=== PATIENT | female | born 1955 | race Caucasian/White ===

== ENCOUNTER 2018-05-21 08:12 | Day surgery (SDC) | payer OTHER ==
--- OUTSIDE RECORDS SUMMARY | 2018-05-21 08:17 | XMS REPORT ---
:1955 Author Organization eClinicalWorks Care Team Providers Name Role Phone Suzette Soto Provider Role Unavailable Allergies No Known Allergies Problems Problem Type Condition Code Onset Dates Condition Status Problem Paresthesia of both legs R20.2 Active Problem Numbness in both hands R20.0 Active Problem Hypertension, unspecified type I10 Active Problem Hypercholesterolemia E78.00 Active Problem Other chronic pain G89.29 Active Problem Memory loss R41.3 Active Problem Pain in left shoulder M25.512 Active Problem Hypothyroidism, unspecified type E03.9 Active Problem Peripheral edema R60.9 Active Problem Pain in right shoulder M25.511 Active Problem Low back pain M54.5 Active Problem Neck pain M54.2 Active Problem Hyperglycemia R73.9 Active Medications No Known Medications Results No Known Results Summary Purpose eClinicalWorks Submission
--- OUTSIDE RECORDS SUMMARY | 2018-05-21 08:17 | XMS REPORT ---
:1955 Author Organization eClinicalWorks Care Team Providers Name Role Phone Suzette Soto Provider Role Unavailable Allergies, Adverse Reactions, Alerts Substance Reaction Event Type N.K.D.A. Info Not Available Non Drug Allergy Problems Problem Type Condition Code Onset Dates Condition Status Problem Paresthesia of both legs R20.2 Active Problem Numbness in both hands R20.0 Active Problem Hypertension, unspecified type I10 Active Problem Hypercholesterolemia E78.00 Active Assessment Neck pain M54.2 Active Problem Other chronic pain G89.29 Active Problem Memory loss R41.3 Active Problem Pain in left shoulder M25.512 Active Problem Hypothyroidism, unspecified type E03.9 Active Problem Peripheral edema R60.9 Active Problem Pain in right shoulder M25.511 Active Assessment Numbness in both hands R20.0 Active Assessment Hypothyroidism, unspecified type E03.9 Active Assessment Pain in left shoulder M25.512 Active Assessment Pain in right shoulder M25.511 Active Assessment Hypertension, unspecified type I10 Active Problem Low back pain M54.5 Active Assessment Hypercholesterolemia E78.00 Active Problem Neck pain M54.2 Active Assessment Hyperglycemia R73.9 Active Problem Hyperglycemia R73.9 Active Medications Medication Code Code Instructions Start End Status Dosage System Date Date Triamcinolone & NDC 0 0.1 % Active 1 application Emollient Externally Twice a day Zestoretic ND 81013843919 20-12.5 MG Active 1 tablet Orally Once a day Levothyroxine ND 71100447827 50 MCG Orally Active 1 tablet on Sodium Once a day an empty stomach in the morning Amlodipine ND 88549858515 10 MG Orally Active 1 tablet Besylate Once a day Multivitamin & NDC 51959498676 - Orally Active not defined Mineral Pravastatin NDC 65991467610 10 MG Orally Active 1 tablet in Sodium Once a day evening Results No Known Results Summary Purpose eClinicalWorks Submission
--- OUTSIDE RECORDS SUMMARY | 2018-05-21 08:17 | XMS REPORT ---
[...] Pain in right shoulder M25.511 Active Assessment Screening mammogram, encounter for Z12.31 Active Problem Low back pain M54.5 Active Problem Neck pain M54.2 Active Problem Hyperglycemia R73.9 Active Medications No Known Medications Results No Known Results Summary Purpose eClinicalWorks Submission
[2018-05-21] MEDS ORDERED: NA CHLORIDE 0.9% 1,000 ML ONE (08:41)
[2018-05-21 09:00] LABS: MPV 9.9 fL (7.6-11.3)
[2018-05-21 09:02] LABS: Protime INR 1.03
[2018-05-21] MEDS ORDERED: NALOXONE 0.4 MG/ML VIAL ONE (09:36)
[2018-05-21] MEDS ORDERED: FENTANYL CITR 100 MCG/2 ML ONE (09:36)
[2018-05-21] MEDS ORDERED: FLUMAZENIL 0.1 MG/ML (5 mL VIAL) IV ONE (09:36)
[2018-05-21] MEDS ORDERED: DIPHENHYDRAMINE 50 MG/ML VIAL ONE (09:36)
[2018-05-21] MEDS ORDERED: MIDAZOLAM HCL 2 MG/2 ML INJ ONE (09:36)
[2018-05-21 09:49] LABS: Platelet Estimate ADEQ
--- NOTE | 2018-05-21 12:50 | RAD REPORT ---
EXAM DESCRIPTION: US - Liver Biopsy Proceduree - 05/21/2018 10:55 am CLINICAL HISTORY: Abnormal liver function. COMPARISON: None. TECHNIQUE: The patient presents for ultrasound-guided liver biopsy. The procedure, risks and alterna tives were discussed with the patient in detail. After answering all questions, both oral and written consent were obtained. The patient had no contraindicated allergy or medication history. PT/ PTT/ IN R values within normal limits. Platelet count was normal. Preliminary imaging identified an adequate right lateral upper abdominal access site. IV access and physiologic monitors were in place. The patient was pre-medicated with Versed at 2.0 mi lligrams IV and fentanyl 100 micrograms IV. The right lateral abdomen was prepped and draped in the usual sterile fashion. Under ultrasound js nce, skin and deeper tissues were anesthetized with 1% lidocaine. Under direct sonographic visualizat ion, an 18 gauge introducer needle was advanced. The tip was advanced through the liver capsule into the liver parenchyma under direct sonographic visualization. Through the introducer needle, an 18 gau ge needle was advanced into the liver. A 2 cm core biopsy was obtained. A second 2 cm core biopsy was obtained through the introducer needle. Specimens appeared to be adequate. Introducer needle was rem marcial. Direct pressure was applied to the puncture site at the skin down to the liver capsule. Post bi opsy imaging showed no subcapsular or pericapsular hematoma. A sterile bandage was placed to the punc ture site. The patient was placed in a right side down position to apply greater pressure to the biop sy site. Conscious sedation time was 40 minutes. Vital signs were stable throughout the procedure. Patient was monitored throughout the examination by nursing personnel. Patient was transferred to the same day s urgical area for continued monitoring. IMPRESSION: Ultrasound-guided liver biopsy was performed as detailed. All biopsy material was given to pathology for histologic assessment.
== END 2018-05-21 14:07 | disposition home or self-care (01) ==
LOC: DS 08:12
PROVIDERS: ATTEND Internal Medicine Gastroenterology
PROC: 0FB03ZX Excision of Liver, Percutaneous Approach, Diagnostic (ICD-10-PCS; principal; 2018-05-21)
DX: K76.0 Fatty (change of) liver, not elsewhere classified (principal); R10.11 Right upper quadrant pain; R93.5 Abnormal findings on diagnostic imaging of other abdominal regions, including retroperitoneum
CPT/HCPCS: 36415; 47000; 85049; 85610; 85730; 88305; 88307; 88312; 88313; J2250; J2310; J3010; J7030

== ENCOUNTER 2018-06-07 08:10 | Day surgery (SDC) | payer OTHER ==
[2018-06-05 09:55] LABS: Absolute Lymphocytes (CBC) 1.4 K/uL (0.7-4.9); Absolute Monocytes 0.5 K/uL (0.1-1.3); Absolute Neutrophil 3.9 K/uL (1.8-8.0); Basophils % 0.6 % (0-1.3); Eosinophils % 1.7 % (0-4.4); Lymphocytes % 22.9 % (15.3-44.8); MCH 32.1 pg (27.0-35.0); MCV 90.5 fL (80-100); MPV 10.3 fL (7.6-11.3); Monocytes % 9.2 % (3.3-12.3); RBC Red Blood Cell Count 4.53 M/uL (3.86-4.86)
[2018-06-05 10:14] LABS: Potassium 4.1 mmol/L (3.5-5.1)
--- NOTE | 2018-06-05 10:14 | RAD REPORT ---
EXAM DESCRIPTION: RAD - Chest Pa And Lat (2 Views) - 06/05/2018 9:38 am CLINICAL HISTORY: Hypertension Chest pain. COMPARISON: CHEST SINGLE VIEW dated 01/10/2014 FINDINGS: The lungs are clear. The heart is upper limit normal in size. No displaced fractures. IMPRESSION: No acute or concerning finding suspected.
--- NOTE | 2018-06-05 12:59 | EKG ---
Test Date: 2018-06-05 Test Time: 09:33:02 Wood Pole Treater: JASPAL MEASUREMENT RESULTS: Intervals: Rate: 58 TN: 176 QRSD: 80 QT: 382 QTc: 374 [place]: P: 54 TN: 176 QRS: 13 T: 45 INTERPRETIVE STATEMENTS: Sinus bradycardia Otherwise normal ECG Compared to ECG 01/10/2014 01:16:43 Sinus rhythm no longer present Electronically Signed On 06-05-18 12:57:54 CDT by Flaco Bassett
--- OUTSIDE RECORDS SUMMARY | 2018-06-07 08:14 | XMS REPORT ---
:1955 Author Organization eClinicalWorks Care Team Providers Name Role Phone Charles Suzette Provider Role Unavailable Allergies No Known Allergies [...]
--- OUTSIDE RECORDS SUMMARY | 2018-06-07 08:14 | XMS REPORT ---
[...] Emollient Externally Twice a day Zestoretic ND 31566865540 20-12.5 MG Active 1 tablet Orally Once a day Levothyroxine ND 03449968850 50 MCG Orally Active 1 tablet on Sodium Once a day an empty stomach in the morning Amlodipine ND 82943406266 10 MG Orally Active 1 tablet Besylate Once a day Multivitamin & NDC 51673329438 - Orally Active not defined Mineral Pravastatin NDC 45270664710 10 MG Orally Active 1 tablet in Sodium Once a day evening Results No Known Results Summary Purpose eClinicalWorks Submission
--- OUTSIDE RECORDS SUMMARY | 2018-06-07 08:14 | XMS REPORT ---
:1955 Author Organization eClinicalWorks Care Team Providers Name Role Phone Charles Suzette Provider Role Unavailable Allergies, Adverse Reactions, Alerts [...] Pain in right shoulder M25.511 Active Assessment Hypothyroidism, unspecified type E03.9 Active Assessment Hypercholesterolemia E78.00 Active Assessment Hyperglycemia R73.9 Active Problem Low back pain M54.5 Active Assessment Influenza vaccination administered Z23 Active at current visit Problem Neck pain M54.2 Active Assessment Hypertension, unspecified type I10 Active Problem Hyperglycemia R73.9 Active Medications Medication Code Code Instructions Start End Status Dosage System Date Date Multivitamin & [facility] 70117783933 - Orally Active not Mineral defined Zestoretic [facility] 10789005190 20-12.5 MG Active 1 tablet Orally Once a day Pravastatin ND 46265021033 10 MG Orally Active 1 tablet Sodium Once a day in evening Amlodipine [facility] 94808493824 10 MG Orally Active 1 tablet Besylate Once a day Levothyroxine ND 20921025527 50 MCG Orally Active 1 tablet Sodium Once a day on an empty stomach in the morning Results No Known Results Immunizations Vaccine Administration Date Flucelvax Jun 04, 2018 Summary Purpose eClinicalWorks Submission
[2018-06-07] MEDS ORDERED: Ringers Lactate 1,000 ML IV ONE (08:58)
[2018-06-07] MEDS ORDERED: CEFOXITIN/SWI 1gm 1 GM/10 ML SYR ONE (08:59)
[2018-06-07] MEDS ORDERED: PROPOFOL 200 MG/20 ML VIAL IV ONE (09:46)
[2018-06-07] MEDS ORDERED: FENTANYL CITR 100 MCG/2 ML ONE (09:46)
[2018-06-07] MEDS ORDERED: MIDAZOLAM HCL 2 MG/2 ML INJ ONE (09:46)
[2018-06-07] MEDS ORDERED: LIDOCAINE 2% MPF 5 ML VIAL ONE (09:46)
[2018-06-07] MEDS ORDERED: ROCURONIUM 50 MG/5 ML VIAL IV ONE (09:49)
[2018-06-07] MEDS ORDERED: ONDANSETRON 4 MG/2 ML VIAL ONE ×2 (09:49→12:49)
[2018-06-07] MEDS ORDERED: DEXAMETHASONE 10 MG/ML VIAL ONE (11:06)
[2018-06-07] MEDS ORDERED: GLYCOPYRROLATE 0.2 MG/ML SYR ONE (11:20)
[2018-06-07] MEDS ORDERED: KETOROLAC 30 MG/ML INJ ONE (11:21)
[2018-06-07] MEDS ORDERED: NEOSTIGMINE 1 MG/ML -5 ML SYRINGE ONE (11:22)
[2018-06-07] MEDS: MEPERIDINE HCL 50 MG/ML AMP ONE ×7 (11:36→12:21)
--- NOTE | 2018-06-07 11:52 | OP ---
Date of Procedure: 06/07/2018 Surgeon: Delfino Cardoza MD Mortgage Loan Processor: RADAMES Murphy. Preoperative Diagnoses: Chronic cholecystitis. Biliary dyskinesia. Postoperative Diagnoses: Chronic cholecystitis. Biliary dyskinesia. Procedure: Laparoscopic cholecystectomy. Estimated Blood Loss: Minimal. Specimen: Gallbladder. Finding: As above. Anesthesia: General. Complications: None. Disposition: The patient tolerated the procedure in stable condition and taken to Recovery in good g eneral condition. Procedure In Detail: The patient was brought to the OR and placed in the supine position. General a nesthesia was begun. The patient was prepped and draped in the usual sterile fashion. Marcaine 0.5% was infiltrated locally. A 15-blade was used to make a 1 cm supraumbilical midline incision. Subcu taneous tissue divided. The fascia was identified and divided. A #1 Vicryl stay suture was placed. Peritoneal cavity was entered with sharp and blunt dissection. A 12-mm trocar placed into the perit islas cavity under direct vision. Pneumoperitoneum was established. Then three 5-mm trocars placed, 1 in the epigastrium just to the right of midline and 2 in the right subcostal region. Laparoscopy revealed chronic inflammation of the gallbladder with some minimal adhesions, which were taken down w ith sharp and blunt dissection. Fundus retracted superiorly. Infundibulum was identified and retrac twila inferolaterally. Cystic duct and cystic artery were clearly identified with blunt dissection. C lips placed. Both structures were divided. Cautery was used to remove the gallbladder from the live r bed. Bleeding on the liver bed was controlled with cautery. Gallbladder retrieved through the umb ilicus via an EndoCatch bag. Right upper quadrant was irrigated. Effluent was clear. No evidence o f bleeding or bile leakage appreciated. Subsequently, all trocars were removed under direct vision. Stay sutures were tied to each other across the fascial defect. Subcutaneous wounds irrigated. Ble eding controlled with cautery. A 3-0 chromic used to approximate subcutaneous tissue and 3-0 chromic also used to close skin. Sterile dressing was applied. The patient was awakened and taken to [facility] in good general condition. /MODL Voice ID: [id number] Report ID: [id number]
--- NOTE | 2018-06-07 11:58 | DS ---
Discharge Note: The patient will go to Day Surgery and home when stable. Disposition: Home. Condition: Stable. Discharge Instructions: Resume home medications and diet. Activity as tolerated. No heavy lifting. Remove outer dressing in 2 days. Shower. Keep wound clean and dry. Keep Steri-Strips on at all t imes. Tylenol No. 3 one tab p.o. q.4 p.r.n. pain. Follow up in my office in a week. Call for appoi ntment. Incentive spirometry as ordered. /MODL Voice ID: [id number] Report ID: [id number]
[2018-06-07] MEDS ORDERED: HYDROCODONE/APAP 7.5/325 MG TAB ONE (12:48)
== END 2018-06-07 13:45 | disposition home or self-care (01) ==
LOC: OR 08:10
PROVIDERS: ATTEND Surgery
PROC: 0FT44ZZ Resection of Gallbladder, Percutaneous Endoscopic Approach (ICD-10-PCS; principal; 2018-06-07 09:45)
DX: K81.1 Chronic cholecystitis (principal); K21.9 Gastro-esophageal reflux disease without esophagitis; I10 Essential (primary) hypertension; E07.9 Disorder of thyroid, unspecified; Z80.0 Family history of malignant neoplasm of digestive organs
CPT/HCPCS: 36415; 71046; 80048; 85025; 88304; 93005; J1100; J2175; J2250; J2405; J2710; J3010

== ENCOUNTER 2019-02-21 19:28 | Emergency (ER) | payer OTHER ==
--- OUTSIDE RECORDS SUMMARY | 2019-02-21 19:31 | XMS REPORT ---
[...] Status Dosage System Date Date Multivitamin & [facility] 61465334567 - Orally Active not Mineral defined Zestoretic [facility] 00382256345 20-12.5 MG Active 1 tablet Orally Once a day Pravastatin ND 64267427031 10 MG Orally Active 1 tablet Sodium Once a day in evening Amlodipine [facility] 89304613017 10 MG Orally Active 1 tablet Besylate Once a day Levothyroxine ND 31531985709 50 MCG Orally Active 1 tablet Sodium Once a day on an empty stomach in the morning Results No Known Results Immunizations Vaccine Administration Date Flucelvax Jun 04, 2018 Summary Purpose eClinicalWorks Submission
--- OUTSIDE RECORDS SUMMARY | 2019-02-21 19:31 | XMS REPORT ---
:1955 [facility] Team Providers Name Role Phone Suzette Soto Provider Role Unavailable Allergies, Adverse Reactions, Alerts Substance Reaction Event Type N.K.D.A. Info Not Available Non Drug Allergy Problems Problem Type Condition Code Onset Dates Condition Status Assessment Hypertension, unspecified type I10 Active Assessment Hypothyroidism, unspecified type E03.9 Active Assessment Hot flashes R23.2 Active Assessment Sweating increase R61 Active Assessment Generalized weakness R53.1 Active Assessment Dizziness R42 Active Assessment Pain of upper abdomen R10.10 Active Assessment Paresthesia R20.2 Active Assessment Myalgia M79.10 Active Problem Hypercholesterolemia E78.00 Active Assessment Arthralgia, unspecified joint M25.50 Active Problem Memory loss R41.3 Active Problem Obesity (BMI 30.0-34.9) E66.9 Active Problem Myalgia M79.10 Active Problem Essential hypertension I10 Active Problem Paresthesia R20.2 Active Problem Generalized weakness R53.1 Active Problem Pain in right shoulder M25.511 Active Problem Pain in left shoulder M25.512 Active Problem Dizziness R42 Active Problem Hypothyroidism, unspecified type E03.9 Active Problem Arthralgia, unspecified joint M25.50 Active Problem Hot flashes R23.2 Active Problem Sweating increase R61 Active Problem Pain of upper abdomen R10.10 Active Problem Numbness in both hands R20.0 Active Problem Neck pain M54.2 Active Problem Paresthesia of both legs R20.2 Active Problem Hypertension, unspecified type I10 Active Problem Peripheral edema R60.9 Active Problem Other chronic pain G89.29 Active Problem Hyperglycemia R73.9 Active Problem Low back pain M54.5 Active Medications Medication Code Code Instructions Start End Status Dosage System Date Date Zestoretic [facility] 47621663113 20-12.5 MG Active 1 tablet Orally Once a day Amlodipine [facility] 44650897279 10 MG Orally Active 1 tablet Besylate Once a day Pravastatin [facility] 72502666115 10 MG Orally Active 1 tablet Sodium Once a day in evening Multivitamin & NDC 93865481555 - Orally Active not Mineral defined Levothyroxine [facility] 58328603195 50 MCG Orally Active 1 tablet Sodium Once a day on an empty stomach in the morning Results No Known Results Summary Purpose eClinicalWorks Submission
--- OUTSIDE RECORDS SUMMARY | 2019-02-21 19:31 | XMS REPORT ---
:1955 Author Organization eClinicalWorks Care Team Providers Name Role Phone Suzette Soto Provider Role Unavailable Allergies No Known Allergies Problems Problem Type Condition Code Onset Dates Condition Status Problem Obesity (BMI 30.0-34.9) E66.9 Active Problem Myalgia M79.10 Active Problem Essential hypertension I10 Active Problem Paresthesia R20.2 Active Problem Pain in right shoulder M25.511 Active Problem Generalized weakness R53.1 Active Problem Pain in left shoulder M25.512 Active Problem Hypothyroidism, unspecified type E03.9 Active Problem Dizziness R42 Active Problem Arthralgia, unspecified joint M25.50 Active [...] G89.29 Active Problem Hyperglycemia R73.9 Active Problem Hypercholesterolemia E78.00 Active Problem Low back pain M54.5 Active Problem Memory loss R41.3 Active Medications No Known Medications Results No Known Results Summary Purpose eClinicalWorks Submission
--- OUTSIDE RECORDS SUMMARY | 2019-02-21 19:31 | XMS REPORT ---
:1955 Author Organization eClinicalWorks Care Team Providers Name Role Phone Netoilene Suzette Provider Role Unavailable Allergies, Adverse Reactions, Alerts Substance Reaction Event Type N.K.D.A. Info Not Available Non Drug Allergy Problems Problem Type Condition Code Onset Dates Condition Status Problem Numbness in both hands R20.0 Active Problem Pain in left shoulder M25.512 Active Problem Hypothyroidism, unspecified type E03.9 Active Problem Obesity (BMI 30.0-34.9) E66.9 Active Assessment Obesity (BMI 30.0-34.9) E66.9 Active Problem Memory loss R41.3 Active Problem Essential hypertension I10 Active Problem Peripheral edema R60.9 Active Problem Pain in right shoulder M25.511 Active Problem Hypercholesterolemia E78.00 Active Problem Other chronic pain G89.29 Active Assessment Hyperglycemia R73.9 Active Assessment Essential hypertension I10 Active Assessment Hypothyroidism, unspecified type E03.9 Active Assessment Hypercholesterolemia E78.00 Active Problem Hyperglycemia R73.9 Active Problem Low back pain M54.5 Active Problem Paresthesia of both legs R20.2 Active Problem Neck pain M54.2 Active Problem Hypertension, unspecified type I10 Active Medications Medication Code Code Instructions Start End Status Dosage System Date Date Zestoretic [facility] 03606288639 20-12.5 MG Active 1 tablet Orally Once a day Pravastatin [facility] 93772283583 10 MG Orally Active 1 tablet Sodium Once a day in evening Amlodipine [facility] 80129131866 10 MG Orally Active 1 tablet Besylate Once a day Levothyroxine [facility] 90067363701 50 MCG Orally Active 1 tablet Sodium Once a day on an empty stomach in the morning Multivitamin & ND 79080180180 - Orally Active not Mineral defined Results No Known Results Summary Purpose eClinicalWorks Submission
[2019-02-21] MEDS ORDERED: KETOROLAC 30 MG/ML INJ ONE (20:10)
[2019-02-21] MEDS ORDERED: ONDANSETRON 4 MG/2 ML VIAL ONE (20:11)
[2019-02-21] MEDS ORDERED: NA CHLORIDE 0.9% 500 ML ONE (20:11)
[2019-02-21 20:34] LABS: Basophils % 0.7 % (0-1.3); Eosinophils % 1.3 % (0-4.4); Hematocrit 40.4 % (36.0-45.0); Lymphocytes % 36.1 % (15.3-44.8); MPV 10.1 fL (7.6-11.3); Monocytes % 8.7 % (3.3-12.3); RBC Red Blood Cell Count 4.37 M/uL (3.86-4.86)
[2019-02-21 20:49] LABS: Albumin 3.8 g/dL (3.4-5.0); Bilirubin Total 0.3 mg/dL (0.2-1.0); Potassium 4.1 mmol/L (3.5-5.1); Protein, Total 7.6 g/dL (6.4-8.2)
--- NOTE | 2019-02-21 20:57 | RAD REPORT ---
EXAM DESCRIPTION: CT - Stone Protocol - 02/21/2019 8:43 pm CLINICAL HISTORY: Flank pain. PAIN COMPARISON: CT ABD PELVIS W CONTRAST dated 12/15/2008 TECHNIQUE: Axial images were obtained without oral or IV contrast. Lack of contrast limits solid org an and vascular assessment. The [id number] spans the entirety of the system partially obscuring uppermost abdomen and lung bases. Coronal reformatted images were obtained and reviewed. All CT scans are performed using dose optimization technique as appropriate and may include automated exposure control or mA/KV adjustment according to patient size. FINDINGS: The lower lung goins are clear. Cholecystectomy clips. Imaged portions of the liver and spleen show no suspicious findings on non-contrast imaging. The panc reas and adrenal glands are normal. No pathologic lymphadenopathy in the abdomen or pelvis. No urinary tract stones or obstructive uropathy. No bowel obstruction, free air, free fluid or abscess. Normal appendix noted. Moderate lumbar degenerative changes are present. IMPRESSION: No urinary tract stones or obstructive uropathy.
--- NOTE | 2019-02-21 21:23 | EDPHYS ---
Physician Documentation [facility] Name: Mi Cleveland Age: 63 yrs Sex: Female : 1955 Arrival Date: 02/21/2019 Time: 19:32 Bed 6 Private MD: Suzette Soto ED Physician Fercho Shi HPI: 02/21 19:50 This 63 yrs old Female presents to ER via Ambulatory with complaints of pooja Possible Kidney Stone. 19:50 The patient complains of pain in the lumbar area, left low back, left mid back, right pooja mid back and right low back. The pain does not radiate. Onset: The symptoms/episode began/occurred 1 day(s) ago. Modifying factors: The symptoms are alleviated by nothing. the symptoms are aggravated by nothing. The patient presents with pain that is acute, with no known mechanism of injury. The symptoms are located in the low back. Onset: The symptoms/episode began/occurred 1 day(s) ago. The pain does not radiate. Associated signs and symptoms: The patient has no apparent associated signs or symptoms. Historical: - Allergies: 19:48 No Known Allergies; bb - Home Meds: 19:48 amlodipine 10 mg tab 1 tab once daily [Active]; levothyroxine 50 mcg tab 1 tab once bb daily [Active]; pravastatin 10 mg oral tab 1 tab once daily [Active]; omeprazole 40 mg Oral cpDR 1 cap once daily [Active]; raloxifene 60 mg oral tab 1 tab once daily [Active]; Protein powder mix [Active]; - PMHx: 19:48 Hypertension; Hypothyroidism; GERD; bb - PSHx: 19:48 Cholecystectomy; Tubal ligation; bb - Immunization history:: Adult Immunizations up to date. - Social history:: Smoking status: Patient/guardian denies using tobacco. - Ebola Screening: : No symptoms or risks identified at this time. - Family history:: not pertinent. ROS: 19:50 Constitutional: Negative for fever, chills, and weight loss, Eyes: Negative for injury, pooja pain, redness, and discharge, ENT: Negative for injury, pain, and discharge, Neck: Negative for injury, pain, and swelling, Cardiovascular: Negative for chest pain, palpitations, and edema, Respiratory: Negative for shortness of breath, cough, wheezing, and pleuritic chest pain, Abdomen/GI: Negative for abdominal pain, nausea, vomiting, diarrhea, and constipation, : Negative for injury, bleeding, discharge, and swelling, MS/Extremity: Negative for injury and deformity, Skin: Negative for injury, rash, and discoloration, Neuro: Negative for headache, weakness, numbness, tingling, and seizure, Psych: Negative for depression, anxiety, suicide ideation, homicidal ideation, and hallucinations, Allergy/Immunology: Negative for hives, rash, and allergies, Endocrine: Negative for neck swelling, polydipsia, polyuria, polyphagia, and marked weight changes, Hematologic/Lymphatic: Negative for swollen nodes, abnormal bleeding, and unusual bruising. 19:50 Back: Positive for decreased range of motion, pain at rest, pain with movement, of the lumbar area, left low back and right low back. Exam: 19:50 Constitutional: This is a well developed, well nourished patient who is awake, alert, pooja and in no acute distress. Head/Face: Normocephalic, atraumatic. Eyes: Pupils equal round and reactive to light, extra-ocular motions intact. Lids and lashes normal. Conjunctiva and sclera are non-icteric and not injected. Cornea within normal limits. Periorbital areas with no swelling, redness, or edema. ENT: Nares patent. No nasal discharge, no septal abnormalities noted. Tympanic membranes are normal and external auditory canals are clear. Oropharynx with no redness, swelling, or masses, exudates, or evidence of obstruction, uvula midline. Mucous membranes moist. Neck: Trachea midline, no thyromegaly or masses palpated, and no cervical lymphadenopathy. Supple, full range of motion without nuchal rigidity, or vertebral point tenderness. No Meningismus. Chest/axilla: Normal chest wall appearance and motion. Nontender with no deformity. No lesions are appreciated. Cardiovascular: Regular rate and rhythm with a normal S1 and S2. No gallops, murmurs, or rubs. Normal PMI, no JVD. No pulse deficits. Respiratory: Lungs have equal breath sounds bilaterally, clear to auscultation and percussion. No rales, rhonchi or wheezes noted. No increased work of breathing, no retractions or nasal flaring. Abdomen/GI: Soft, non-tender, with normal bowel sounds. No distension or tympany. No guarding or rebound. No evidence of tenderness throughout. Female : Normal external genitalia. Skin: Warm, dry with normal turgor. Normal color with no rashes, no lesions, and no evidence of cellulitis. MS/ Extremity: Pulses equal, no cyanosis. Neurovascular intact. Full, normal range of motion. Neuro: Awake and alert, GCS 15, oriented to person, place, time, and situation. Cranial nerves II-XII grossly intact. Motor strength 5/5 in all extremities. Sensory grossly intact. Cerebellar exam normal. Normal gait. Psych: Awake, alert, with orientation to person, place and time. Behavior, mood, and affect are within normal limits. 19:50 Back: pain, ROM is painful, normal spinal alignment noted, CVA tenderness, is absent, vertebral tenderness, is not appreciated, muscle spasm, is not present. Vital Signs: 19:48 BP 138 / 74; Pulse 85; Resp 16 S; Temp 97.5(O); Pulse Ox 100% on R/A; Weight 88.45 kg (R); Height 5 ft. 6 in. (167.64 cm) (R); Pain 9/10; 20:36 BP 121 / 67; Pulse 70; Resp 17 S; Pulse Ox 100% on R/A; Pain 5/10; cc3 21:15 BP 141 / 81; Pulse 68; Resp 17 S; Pulse Ox 100% on R/A; Pain 5/10; cc3 21:35 BP 115 / 56; Pulse 69; Resp 18 S; Pulse Ox 100% on R/A; Pain 3/10; cc3 19:48 Body Mass Index 31.47 (88.45 kg, 167.64 cm) MDM: 19:43 Patient medically screened. [facility] 19:50 Data reviewed: vital signs, nurses notes, lab test result(s), radiologic studies, CT [facility] scan, plain films. 02/21 19:50 Order name: CBC with Diff [facility] 02/21 19:50 Order name: Urine Culture [facility] 02/21 20:22 Order name: Comprehensive Metabolic Panel; Complete Time: 21:19 [facility] 02/21 20:22 Order name: CBC with Automated Diff; Complete Time: 21:19 [facility] 02/21 19:50 Order name: Urine Dipstick-Ancillary (obtain specimen); Complete Time: 21:27 [facility] 02/21 19:50 Order name: CT Stone Protocol; Complete Time: 21:19 [facility] 02/21 19:50 Order name: Lumbar Spine (3 Views) XRAY [facility] Administered Medications: 20:00 Drug: NS 0.9% 500 ml Route: IV; Rate: bolus; Site: right forearm; cc3 21:15 Follow up: Response: No adverse reaction; IV Status: Completed infusion; IV Intake: cc3 500ml 20:03 Drug: TORadol 30 mg Route: IVP; Site: right forearm; cc3 21:16 Follow up: Response: No adverse reaction; Pain is decreased; NRS 5/10 cc3 20:07 Drug: Zofran 4 mg Route: IVP; Site: right forearm; cc3 21:16 Follow up: Response: No adverse reaction; Nausea is decreased cc3 Disposition: 02/21/19 21:22 Discharged to Home. Impression: Low back pain. - Condition is Stable. - Discharge Instructions: Back Pain, Adult, Musculoskeletal Pain, Back Injury Prevention, [id number], Back Pain, Adult, [id number]. - Prescriptions for Ibuprofen 600 mg Oral Tablet - take 1 tablet by ORAL route every 8 hours As needed take with food; 21 tablet. Tylenol- Codeine #3 300-30 mg Oral Tablet - take 2 tablet by ORAL route every 6 hours As needed; 30 tablet. Medrol (Rick) 4 mg Oral Tablets, Dose Pack - take 1 tablet by ORAL route as directed - follow package instructions; 1 packet. Cyclobenzaprine 5 mg Oral Tablet - take 1 tablet by ORAL route 3 times per day As needed; 15 tablet. - Medication Reconciliation Form, Thank You Letter, Antibiotic Education, Prescription Opioid Use form. - Follow up: Suzette Soto; When: 2 - 3 days; Reason: Recheck today's complaints, Continuance of care, Re-evaluation by your physician. - Problem is new. - Symptoms have improved. Signatures: Dispatcher [employer] Fercho Zambrano MD MD cha Ballard, Brenda, RN RN Juana Meyer cc3 Corrections: (The following items were deleted from the chart) 20:40 20:34 CBC with Automated Diff ordered. [facility] 21:41 21:22 02/21/2019 21:22 Discharged to Home. Impression: Low back pain. Condition is cc3 Stable. Discharge Instructions: Back Pain, Adult, Musculoskeletal Pain, Back Injury Prevention, [id number], Back Pain, Adult, Rqqz-[id number]-[id number]. Prescriptions for Ibuprofen 600 mg Oral Tablet - take 1 tablet by ORAL route every 8 hours As needed take with food; 21 tablet, Tylenol-Codeine #3 300-30 mg Oral Tablet - take 2 tablet by ORAL route every 6 hours As needed; 30 tablet, Medrol (Rick) 4 mg Oral Tablets, Dose Pack - take 1 tablet by ORAL route as directed - follow package instructions; 1 packet, Cyclobenzaprine 5 mg Oral Tablet - take 1 tablet by ORAL route 3 times per day As needed; 15 tablet. and Forms are Medication Reconciliation Form, Thank You Letter, Antibiotic Education, Prescription Opioid Use. Follow up: Suzette Soto; When: 2 - 3 days; Reason: Recheck today's complaints, Continuance of care, Re-evaluation by your physician. Problem is new. Symptoms have improved. pooja
--- NOTE | 2019-02-21 21:23 | ER ---
Nurse's Notes [facility] Name: Mi Cleveland Age: 63 yrs Sex: Female : 1955 Arrival Date: 02/21/2019 Time: 19:32 Bed 6 Private MD: Suzette Soto Diagnosis: Low back pain Presentation: 02/21 19:39 Presenting complaint: Patient states: she is having lower back pain for several days bb which is intermittent and currently is 9/10, pt denies dysuria, pt is a [employer] at [employer]. Pt denies vomiting or diarrhea, pain is worse when moving, pain does not radiate. Transition of care: patient was not received from another setting of care. Onset of symptoms was February 2019. Risk Assessment: Do you want to hurt yourself or someone else? Patient reports no desire to harm self or others. Initial Sepsis Screen: Does the patient meet any 2 criteria? No. Patient's initial sepsis screen is negative. Does the patient have a suspected source of infection? No. Patient's initial sepsis screen is negative. Care prior to arrival: None. 19:39 Method Of Arrival: Ambulatory bb 19:39 Acuity: TIMO 3 bb Historical: - Allergies: 19:48 No Known Allergies; bb - Home Meds: 19:48 amlodipine 10 mg tab 1 tab once daily [Active]; levothyroxine 50 mcg tab 1 tab once bb daily [Active]; pravastatin 10 mg oral tab 1 tab once daily [Active]; omeprazole 40 mg Oral cpDR 1 cap once daily [Active]; raloxifene 60 mg oral tab 1 tab once daily [Active]; Protein powder mix [Active]; - PMHx: 19:48 Hypertension; Hypothyroidism; GERD; bb - PSHx: 19:48 Cholecystectomy; Tubal ligation; bb - Immunization history:: Adult Immunizations up to date. - Social history:: Smoking status: Patient/guardian denies using tobacco. - Ebola Screening: : No symptoms or risks identified at this time. - Family history:: not pertinent. Screenin:45 Abuse screen: Denies threats or abuse. Denies injuries from another. Nutritional cc3 screening: No deficits noted. Tuberculosis screening: No symptoms or risk factors identified. Fall Risk Ambulatory Aid- None/Bed Rest/Nurse Assist (0 pts). Gait- Normal/Bed Rest/Wheelchair (0 pts) Mental Status- Oriented to own ability (0 pts). Assessment: 19:45 General: Appears in no apparent distress. uncomfortable, Behavior is calm, cooperative, cc3 appropriate for age. Pain: Complains of pain in right low back and right mid back and left mid back and left low back and lumbar area Quality of pain is described as aching, Pain began 2-3 days ago. Neuro: Level of Consciousness is awake, alert, obeys commands, Oriented to person, place, time, situation, Appropriate for age. Cardiovascular: Denies chest pain, Patient's skin is warm and dry. Respiratory: Airway is patent Respiratory effort is even, unlabored, Respiratory pattern is regular, symmetrical. GI: Bowel sounds present X 4 quads. Abd is soft and non tender X 4 quads. : No signs and/or symptoms were reported regarding the genitourinary system. EENT: No signs and/or symptoms were reported regarding the EENT system. Derm: No signs and/or symptoms reported regarding the dermatologic system. Musculoskeletal: Reports pain in right low back and right mid back and left mid back and left low back and lumbar area. 20:42 Reassessment: Patient appears in no apparent distress at this time. Patient and/or cc3 family updated on plan of care and expected duration. Pain level reassessed. Patient is alert, oriented x 3, equal unlabored respirations, skin warm/dry/pink. Patient taken by hvac field service technician to their department by wheelchair. Patient denies pain at this time. Patient states feeling better. 21:14 Reassessment: Patient appears in no apparent distress at this time. Patient and/or cc3 family updated on plan of care and expected duration. Pain level reassessed. Patient is alert, oriented x 3, equal unlabored respirations, skin warm/dry/pink. Patient came back from CT scan department, awaiting result. Patient denies pain at this time. Patient states feeling better. Patient states symptoms have improved. 21:40 Reassessment: Patient appears in no apparent distress at this time. Patient and/or cc3 family updated on plan of care and expected duration. Pain level reassessed. Patient is alert, oriented x 3, equal unlabored respirations, skin warm/dry/pink. Dr. Shi discharged the patient home with prescriptions given. IV cannula removed and patient left ER vitally stable and ambulatory. Patient denies pain at this time. Patient states feeling better. Patient states symptoms have improved. Vital Signs: 19:48 BP 138 / 74; Pulse 85; Resp 16 S; Temp 97.5(O); Pulse Ox 100% on R/A; Weight 88.45 kg bb (R); Height 5 ft. 6 in. (167.64 cm) (R); Pain 9/10; 20:36 BP 121 / 67; Pulse 70; Resp 17 S; Pulse Ox 100% on R/A; Pain 5/10; cc3 21:15 BP 141 / 81; Pulse 68; Resp 17 S; Pulse Ox 100% on R/A; Pain 5/10; cc3 21:35 BP 115 / 56; Pulse 69; Resp 18 S; Pulse Ox 100% on R/A; Pain 3/10; cc3 19:48 Body Mass Index 31.47 (88.45 kg, 167.64 cm) ED Course: 19:32 Patient arrived in ED. es 19:32 Suzette Soto MD is Private Physician. es 19:43 Fercho Shi MD is Attending Physician. pooja 19:45 Juana Alcantar is Primary Nurse. cc3 19:45 Patient has correct armband on for positive identification. Bed in low position. Call cc3 light in reach. Side rails up X 1. Pulse ox on. NIBP on. 19:46 Triage completed. bb 19:48 Arm band placed on Patient placed in an exam room, on a stretcher, on pulse oximetry. bb 20:[address] vm2 20:43 CT Stone Protocol In Process Unspecified. EDMS 21:05 Lumbar Spine (3 Views) XRAY In Process Unspecified. EDMS 21:22 Suzette Soto MD is Referral Physician. pooja 21:40 No provider procedures requiring assistance completed. IV discontinued, intact, cc3 bleeding controlled, No redness/swelling at site. Pressure dressing applied. Administered Medications: 20:00 Drug: NS 0.9% 500 ml Route: IV; Rate: bolus; Site: right forearm; cc3 21:15 Follow up: Response: No adverse reaction; IV Status: Completed infusion; IV Intake: cc3 500ml 20:03 Drug: TORadol 30 mg Route: IVP; Site: right forearm; cc3 21:16 Follow up: Response: No adverse reaction; Pain is decreased; NRS 5/10 cc3 20:07 Drug: Zofran 4 mg Route: IVP; Site: right forearm; cc3 21:16 Follow up: Response: No adverse reaction; Nausea is decreased cc3 Intake: 21:15 IV: 500ml; Total: 500ml. cc3 Outcome: 21:22 Discharge ordered by . pooja 21:40 Discharged to home ambulatory. cc3 21:40 Condition: stable 21:40 Discharge instructions given to patient, Instructed on discharge instructions, follow up and referral plans. medication usage, Demonstrated understanding of instructions, follow-up care, medications, Prescriptions given X 4. 21:41 Patient left the ED. cc3 Signatures: Dispatcher [employer] Fercho Zambrano MD MD cha Salyer, Naomi Cameron RN RN Shellie Burnett Charlene cc3 Corrections: (The following items were deleted from the chart) 21:15 20:36 BP 121 / 67; Pulse 70bpm; Resp 17bpm; Spontaneous; Pulse Ox 100% RA; cc3 cc3
--- NOTE | 2019-02-21 21:29 | RAD REPORT ---
EXAM DESCRIPTION: RAD - Lumbar Spine 3 Views - 02/21/2019 9:08 pm CLINICAL HISTORY: PAIN Radiculopathy COMPARISON: LUMBAR SPINE 3 VIEWS dated 07/29/2008 FINDINGS: Vertebral body heights appear maintained. No compression fracture noted. Prominent disc th inning is seen with small endplate osteophytes in the mid lumbar spine, greatest at L3-4. Vacuum disc degeneration at L5-S1. Mild degenerative dextroscoliosis. Cholecystectomy clips. IMPRESSION: Mild to moderate lower lumbar spondylosis.
== END 2019-02-21 21:41 | disposition home or self-care (01) ==
LOC: ER 19:28
DX: M54.5 Low back pain (principal); I10 Essential (primary) hypertension; E03.9 Hypothyroidism, unspecified; K21.9 Gastro-esophageal reflux disease without esophagitis
CPT/HCPCS: 36415; 72100; 74176; 76377; 80053; 85025; 87077; 87086; 87088; 87186; 96361; 96374; 96375; 99284; J2405

== ENCOUNTER 2021-01-30 14:38 | Emergency (ER) | payer OTHER ==
--- OUTSIDE RECORDS SUMMARY | 2021-01-30 14:41 | XMS REPORT | Continuity of Care Document ---
:1955 Author Organization [facility] t Address [address] [place] [address] Care Team Providers Name Role Phone Unavailable Unavailable Unavailable Problems This patient has no known problems. Allergies, Adverse Reactions, Alerts This patient has no known allergies or adverse reactions. Medications Ordered Filled Start Stop Current Ordering Indication Dosage Frequency Signature Comments Components Source Medication Medication Date Date Medication? Clinician (SIG) Name Name Multivitami Multivitami Yes Suzette not [facility] Pravastatin Pravastatin Yes Suzette [address] [facility] Sodium Sodium [facility] in evening [facility] Zestoretic Zestoretic Yes Suzette [address] [facility] Levothyroxi Levothyroxi Yes Suzette [address] [facility] ne Sodium ne Sodium Millender on an [facility] Amlodipine Amlodipine Yes Suzette [address] [facility] Besylate Besylate [facility] Omeprazole Omeprazole Yes Suzette [address] [facility] Immunizations Ordered Filled Immunization Date Status Comments Sourc e Immunization Name Name Flucelvax Flucelvax 2018-06-[address] [facility] Procedures This patient has no known procedures. Encounters Start End Encounter Admission Attending Care Care Encounter Source Date/Time Date/Time Type Type Clinicians Facility Department ID 2020-11-30 2020-11-30 [facility] [id number] 2020-10-01 2020-10-01 [facility] [id number] [facility] 2020-09-28 2020-09-28 [facility] [id number] [facility] 2020-09-25 2020-09-25 [facility] [id number] [facility] 2019-04-22 2019-04-22 [facility] [id number] [facility] 10[facility] 10:40[facility]00 [facility] Medicine Outpati ent Clin[facility] 2019-01-14 2019-01-14 [facility] [id number] 16:34:00 16:34:00 t [facility] Out[facility] Clin[facility] 2019-01-08 2019-01-08 [facility] [id number] 08[facility]20:00 08:20:00 t [facility] Medicine Medicine Outpati ent Clinics 2018-11-12 2018-11-12 [facility] [id number] [facility] 09[facility]30:00 09:30:00 t [facility] Medicine Medicine Outpati ent Clinics 2018-06-04 2018-06-04 [facility] [id number] 21:29:00 21:29:00 t [facility] Medicine Medicine Outpati ent Clinics 2018-06-04 2018-06-04 [facility] [id number] 11:15:00 11:15:00 t [facility] Medicine Medicine Outpati ent Clinics 2018-01-08 2018-01-08 [facility] [id number] 08:38[facility] 08:38[facility] [facility] 2017-12-13 2017-12-13 Outpatient Domenic Shetht [id number] 15:32:00 15:32:00 [facility] ent Clinics 2017-12-11 2017-12-11 Outpatient Domenic Chavez [id number] 08:30:00 08:30:00 [facility] ent Clinics Results This patient has no known results.
[2021-01-30 16:24] LABS: Urine Blood Trace-intact (Negative); Urine Glucose Negative (Negative); Urine Protein Negative (Negative); Urine pH 6.5 (5.0-7.0)
--- NOTE | 2021-01-30 16:44 | RAD REPORT ---
EXAM DESCRIPTION: Franca Single View01/30/2021 4:11 pm CLINICAL HISTORY: Chest pain COMPARISON: 2017 FINDINGS: The lungs appear clear of acute infiltrate. The heart is normal size IMPRESSION: No acute abnormalities displayed
[2021-01-30] MEDS ORDERED: NA CHLORIDE 0.9% 100 ML ONE ×2 (17:00→18:48)
[2021-01-30] MEDS ORDERED: FOLIC ACID 5 MG/ML VIAL ONE (17:03)
[2021-01-30 17:25] LABS: Protime INR 0.96
[2021-01-30 17:27] LABS: Basophils % 0.4 % (0-1.3); Hematocrit 41.8 % (36.0-45.0); Lymphocytes % 25.8 % (15.3-44.8); MPV 10.2 fL (7.6-11.3); RBC Red Blood Cell Count 4.61 M/uL (3.86-4.86)
[2021-01-30 17:34] LABS: ALT/SGPT 18 U/L (12-78); AST/SGOT 25 U/L (15-37); Albumin 3.7 g/dL (3.4-5.0); Alkaline Phosphatase 94 U/L (45-117); BUN Blood Urea Nitrogen 15 mg/dL (7-18); Bicarbonate 25 mmol/L (21-32); Bilirubin Direct 0.2 mg/dL (0-0.2); Bilirubin Total 0.6 mg/dL (0.2-1.0); Glucose Level 86 mg/dL (74-106); Magnesium 2.1 mg/dL (1.8-2.4); NT PRO-BNP 384 pg/mL (<125); Potassium 3.5 mmol/L (3.5-5.1); Sodium Level 140 mmol/L (136-145); Troponin (Emerg Dept Use Only) < 0.02 ng/mL (0.0-0.045)
--- NOTE | 2021-01-30 18:01 | RAD REPORT ---
EXAM DESCRIPTION: CT - Head Brain Wo Cont - 01/30/2021 5:49 pm CLINICAL HISTORY: Dizziness COMPARISON: November 2020 TECHNIQUE: Computed axial tomography of the head was obtained. IV contrast was not requested. All CT scans are performed using dose optimization technique as appropriate and may include automated exposure control or mA/KV adjustment according to patient size. FINDINGS: An intracranial bleed is not seen . The ventricles are normal in caliber. No extra-axial fluid collection is noted. Fluid is present within the maxillary sinuses which may indicate acute sinusitis IMPRESSION: No acute intracranial abnormality is seen. If patient's symptoms persist MRI of the bra in would be recommended.
--- NOTE | 2021-01-30 18:12 | RAD REPORT ---
EXAM DESCRIPTION: Akanksha Angio01/30/2021 5:55 pm CLINICAL HISTORY: Dizziness COMPARISON: None TECHNIQUE: 50 cc Isovue 370 was administered intravenously. 3D MIP reconstruction performed All CT scans are performed using dose optimization technique as appropriate and may include automated exposure control or mA/KV adjustment according to patient size. FINDINGS: Mild plaque within the common, internal and external carotid arteries bilaterally. The vertebral arteries are codominant without visualization of abnormality. No aneurysm. IMPRESSION: Mild plaque within the carotid arteries NASCET criteria used. Mild 0-49% stenosis Moderate 50-69% stenosis Severe 70-99% stenosis
--- NOTE | 2021-01-30 18:14 | RAD REPORT ---
EXAM DESCRIPTION: CTHead angio01/30/2021 5:55 pm CLINICAL HISTORY: Dizziness COMPARISON: None TECHNIQUE: CT angiogram of the head was obtained. 3D MIPS reconstruction performed. All CT scans are performed using dose optimization technique as appropriate and may include automated exposure control or mA/KV adjustment according to patient size. FINDINGS: The basilar, internal carotid, anterior cerebral, middle cerebral and posterior cerebral a rteries are normal caliber. An aneurysm is not seen. A significant stenosis is not noted. IMPRESSION: Unremarkable CT angiogram head.
--- NOTE | 2021-01-30 18:43 | EDPHYS ---
Physician Documentation [facility] Name: Mi Cleveland Age: 65 yrs Sex: Female : 1955 Arrival Date: 01/30/2021 Time: 14:40 Bed 5 Private MD: ED Physician Fercho Shi HPI: 01/30 15:55 This 65 yrs old Female presents to ER via Ambulatory with complaints of Neck pooja Pain, Foggy Brain. 15:55 The patient presents with dizziness, feeling faint. Onset: The symptoms/episode pooja began/occurred 3 day(s) ago. Context: occurred while the patient was UNKNOWN. Modifying factors: The symptoms are alleviated by nothing, the symptoms are aggravated by nothing. Associated signs and symptoms: The patient has no apparent associated signs or symptoms. Severity of symptoms: At their worst the symptoms were mild in the emergency department the symptoms are unchanged. Patient's baseline: Neuro: alert and fully oriented. The patient has not experienced similar symptoms in the past. Historical: - Allergies: 15:11 No Known Allergies; ca1 - Home Meds: 15:11 raloxifene 60 mg Oral tab 1 tab once daily [Active]; levothyroxine 50 mcg tab 1 tab ca1 once daily [Active]; amlodipine 5 mg oral tab 1 tab once daily [Active]; pravastatin 10 mg Oral tab 1 tab once daily [Active]; omeprazole 40 mg Oral cpDR 1 cap once daily [Active]; memantine 10 mg oral tab 1 tab 2 times per day [Active]; Protein powder mix [Active]; - PMHx: 15:11 GERD; Hypertension; Hypothyroidism; ca1 - PSHx: 15:11 Cholecystectomy; Tubal ligation; ca1 - Immunization history:: Client reports receiving the 2nd dose of the Covid vaccine, Client reports receiving the 1st dose of the Covid vaccine, Pneumococcal vaccine is not up to date, Flu vaccine is not up to date. - Social history:: Smoking status: Patient denies any tobacco usage or history of. - Family history:: not pertinent. ROS: 15:55 Constitutional: Negative for fever, chills, and weight loss, Eyes: Negative for injury, pooja pain, redness, and discharge, ENT: Negative for injury, pain, and discharge, Neck: Negative for injury, pain, and swelling, Cardiovascular: Negative for chest pain, palpitations, and edema, Respiratory: Negative for shortness of breath, cough, wheezing, and pleuritic chest pain, Abdomen/GI: Negative for abdominal pain, nausea, vomiting, diarrhea, and constipation, Back: Negative for injury and pain, : Negative for injury, bleeding, discharge, and swelling, MS/Extremity: Negative for injury and deformity, Skin: Negative for injury, rash, and discoloration, Psych: Negative for depression, anxiety, suicide ideation, homicidal ideation, and hallucinations, Allergy/Immunology: Negative for hives, rash, and allergies, Endocrine: Negative for neck swelling, polydipsia, polyuria, polyphagia, and marked weight changes, Hematologic/Lymphatic: Negative for swollen nodes, abnormal bleeding, and unusual bruising. 15:55 Neuro: Positive for dizziness, weakness. Exam: 15:55 Constitutional: This is a well developed, well nourished patient who is awake, alert, pooja and in no acute distress. Head/Face: Normocephalic, atraumatic. Eyes: Pupils equal round and reactive to light, extra-ocular motions intact. Lids and lashes normal. Conjunctiva and sclera are non-icteric and not injected. Cornea within normal limits. Periorbital areas with no swelling, redness, or edema. ENT: Nares patent. No nasal discharge, no septal abnormalities noted. Tympanic membranes are normal and external auditory canals are clear. Oropharynx with no redness, swelling, or masses, exudates, or evidence of obstruction, uvula midline. Mucous membranes moist. Neck: Trachea midline, no thyromegaly or masses palpated, and no cervical lymphadenopathy. Supple, full range of motion without nuchal rigidity, or vertebral point tenderness. No Meningismus. Chest/axilla: Normal chest wall appearance and motion. Nontender with no deformity. No lesions are appreciated. Cardiovascular: Regular rate and rhythm with a normal S1 and S2. No gallops, murmurs, or rubs. Normal PMI, no JVD. No pulse deficits. Respiratory: Lungs have equal breath sounds bilaterally, clear to auscultation and percussion. No rales, rhonchi or wheezes noted. No increased work of breathing, no retractions or nasal flaring. Abdomen/GI: Soft, non-tender, with normal bowel sounds. No distension or tympany. No guarding or rebound. No evidence of tenderness throughout. Back: No spinal tenderness. No costovertebral tenderness. Full range of motion. Female : Normal external genitalia. Skin: Warm, dry with normal turgor. Normal color with no rashes, no lesions, and no evidence of cellulitis. MS/ Extremity: Pulses equal, no cyanosis. Neurovascular intact. Full, normal range of motion. Neuro: Awake and alert, GCS 15, oriented to person, place, time, and situation. Cranial nerves II-XII grossly intact. Motor strength 5/5 in all extremities. Sensory grossly intact. Cerebellar exam normal. Normal gait. Psych: Awake, alert, with orientation to person, place and time. Behavior, mood, and affect are within normal limits. 15:55 Cardiovascular: Rate: normal, Rhythm: regular, Pulses: no pulse deficits are appreciated, Heart sounds: normal, Edema: is not appreciated, JVD: is not appreciated. Vital Signs: 14:53 BP 154 / 73; Pulse 86; Resp 17; Temp 97.8; Pulse Ox 99% on R/A; Weight 88.9 kg (R); ca1 Height 5 ft. 6 in. (167.64 cm); 16:59 BP 159 / 78; Pulse 75; Resp 17; Pulse Ox 98% ; bp 18:30 BP 144 / 67; Pulse 73; Resp 16; Pulse Ox 99% ; bp 14:53 Body Mass Index 31.63 (88.90 kg, 167.64 cm) ca1 MDM: 15:28 Patient medically screened. [facility] 15:59 Differential diagnosis: cardiac arrhythmia, CVA, generalized weakness. Data reviewed: [facility] vital signs, nurses notes, lab test result(s), EKG, radiologic studies, CT scan, plain films. Data interpreted: quality assurance monitor chassis: rate is 86 beats/min, rhythm is regular, Pulse oximetry: on room air is 99 %. Test interpretation: by ED physician or midlevel provider: ECG, plain radiologic studies. Counseling: I had a detailed discussion with the patient and/or guardian regarding: lab results, radiology results. 01/30 15:49 Order name: Basic Metabolic Panel [facility] 01/30 15:49 Order name: CBC with Diff; Complete Time: 17:39 [facility] 01/30 15:49 Order name: LFT's; Complete Time: 17:39 [facility] 01/30 15:49 Order name: Magnesium; Complete Time: 17:39 [facility] 01/30 15:49 Order name: NT PRO-BNP; Complete Time: 17:39 [facility] 01/30 15:49 Order name: PT-INR; Complete Time: 17:39 [facility] 01/30 15:49 Order name: Troponin (emerg Dept Use Only); Complete Time: 17:39 [facility] 01/30 15:49 Order name: XRAY Chest (1 view); Complete Time: 17:39 [facility] 01/30 15:49 Order name: CT Head Brain wo Cont; Complete Time: 18:04 [facility] 01/30 15:49 Order name: CT Head Angio; Complete Time: 18:41 [facility] 01/30 15:49 Order name: TSH; Complete Time: 17:39 [facility] 01/30 15:49 Order name: Urine Culture 01/30 15:49 Order name: Basic Metabolic Panel; Complete Time: 17:39 [facility] 01/30 16:24 Order name: Urine Dipstick-Ancillary; Complete Time: 17:39 [facility] 01/30 15:49 Order name: EKG; Complete Time: 15:50 [facility] 01/30 15:49 Order name: Cardiac monitoring; Complete Time: 15:51 [facility] 01/30 15:49 Order name: EKG - Nurse/Tech; Complete Time: 17:31 [facility] 01/30 15:49 Order name: IV Saline Lock; Complete Time: 17:06 [facility] 01/30 15:49 Order name: Labs collected and sent; Complete Time: 17:06 [facility] 01/30 15:49 Order name: O2 Per Protocol; Complete Time: 15:50 [facility] 01/30 15:49 Order name: O2 Sat Monitoring; Complete Time: 15:50 [facility] 01/30 15:49 Order name: Neck Angio CT; Complete Time: 18:41 [facility] 01/30 15:49 Order name: Urine Dipstick-Ancillary (obtain specimen); Complete Time: 17:07 [facility] Administered Medications: 16:30 Drug: foLIC Acid 1 mg Route: IVPB; Site: left forearm; bp 18:46 Follow up: IV Status: Completed infusion; IV Intake: 100ml bp 18:20 Drug: Aspirin Chewable Tablet 324 mg Route: PO; bp 18:44 Follow up: Response: No adverse reaction bp 18:20 Drug: Thiamine 100 mg Route: IV; Rate: bolus; Site: left forearm; bp 18:44 Follow up: IV Status: Completed infusion; IV Intake: 100ml bp Disposition: 01/30/21 18:43 Discharged to Home. Impression: Dizziness and giddiness, Weakness. - Condition is Stable. - Discharge Instructions: Dizziness, Weakness, Fatigue, Weakness, [id number], Aspirin and Your Heart, Dizziness, [id number]. - Prescriptions for Folic Acid 1 mg Oral Tablet - take 1 tablet by ORAL route once daily; 30 tablet. Vitamin 27- 0.8 mg Oral Tablet - take 1 tablet by ORAL route once daily; 30 tablet. - Medication Reconciliation Form, Thank You Letter, Antibiotic Education, Prescription Opioid Use form. - Follow up: Private Physician; When: 2 - 3 days; Reason: Recheck today's complaints, Continuance of care, Re-evaluation by your physician. Follow up: Alton Maurice; When: 2 - 3 days; Reason: Recheck today's complaints, Re-evaluation by your physician. - Problem is new. - Symptoms have improved. Signatures: Dispatcher [employer] EDIA Fercho Shi MD MD cha Peltier, Brian, RN RN Olivia Rodriguez RN RN ca1 Corrections: (The following items were deleted from the chart) 19:17 18:43 01/30/2021 18:43 Discharged to Home. Impression: Dizziness and giddiness; bp Weakness. Condition is Stable. Discharge Instructions: Dizziness, Weakness, Fatigue, Weakness, Uryk-[id number], Aspirin and Your Heart, Dizziness, Unpm-lw-Funt. Prescriptions for Folic Acid 1 mg Oral Tablet - take 1 tablet by ORAL route once daily; 30 tablet, Vitamin 27-0.8 mg Oral Tablet - take 1 tablet by ORAL route once daily; 30 tablet. and Forms are Medication Reconciliation Form, Thank You Letter, Antibiotic Education, Prescription Opioid Use. Follow up: Private Physician; When: 2 - 3 days; Reason: Recheck today's complaints, Continuance of care, Re-evaluation by your physician. Follow up: Alton Maurice; When: 2 - 3 days; Reason: Recheck today's complaints, Re-evaluation by your physician. Problem is new. Symptoms have improved. pooja
--- NOTE | 2021-01-30 18:43 | ER ---
Nurse's Notes [facility] Name: Mi Cleveland Age: 65 yrs Sex: Female : 1955 Arrival Date: 01/30/2021 Time: 14:40 Bed 5 Private MD: Diagnosis: Dizziness and giddiness;Weakness Presentation: 01/30 14:50 Chief complaint: Patient states: neck, throat hurting since yesterday. Pain comes and ca1 goes and now my brain feels foggy. Dr. Maurice increased dose of Memantine from 5mg to 10mg. Coronavirus screen: Client denies travel out of the [place] in the last 14 days. At this time, the client does not indicate any symptoms associated with coronavirus-19. Ebola Screen: Patient negative for fever greater than or equal to 101.5 degrees Fahrenheit, and additional compatible Ebola Virus Disease symptoms Patient denies exposure to infectious person. Patient denies travel to an Ebola-affected area in the 21 days before illness onset. No symptoms or risks identified at this time. Initial Sepsis Screen: Does the patient meet any 2 criteria? No. Patient's initial sepsis screen is negative. Does the patient have a suspected source of infection? No. Patient's initial sepsis screen is negative. Risk Assessment: Do you want to hurt yourself or someone else? Patient reports no desire to harm self or others. Onset of symptoms was January 30, 2021. 14:50 Method Of Arrival: Ambulatory ca1 14:50 Acuity: TIMO 3 ca1 Triage Assessment: 15:00 General: Appears distressed, uncomfortable, Behavior is cooperative, appropriate for bp age, anxious. Pain: Complains of pain in neck. EENT: Reports SORE THROAT. Neuro: Level of Consciousness is awake, alert, obeys commands, Oriented to Appropriate for age. Cardiovascular: No deficits noted. Respiratory: Airway is patent Respiratory effort is even, unlabored, Respiratory pattern is regular, symmetrical. GI: No signs and/or symptoms were reported involving the gastrointestinal system. : No signs and/or symptoms were reported regarding the genitourinary system. Derm: No deficits noted. Musculoskeletal: No deficits noted. Historical: - Allergies: 15:11 No Known Allergies; ca1 - Home Meds: 15:11 raloxifene 60 mg Oral tab 1 tab once daily [Active]; levothyroxine 50 mcg tab 1 tab ca1 once daily [Active]; amlodipine 5 mg oral tab 1 tab once daily [Active]; pravastatin 10 mg Oral tab 1 tab once daily [Active]; omeprazole 40 mg Oral cpDR 1 cap once daily [Active]; memantine 10 mg oral tab 1 tab 2 times per day [Active]; Protein powder mix [Active]; - PMHx: 15:11 GERD; Hypertension; Hypothyroidism; ca1 - PSHx: 15:11 Cholecystectomy; Tubal ligation; ca1 - Immunization history:: Client reports receiving the 2nd dose of the Covid vaccine, Client reports receiving the 1st dose of the Covid vaccine, Pneumococcal vaccine is not up to date, Flu vaccine is not up to date. - Social history:: Smoking status: Patient denies any tobacco usage or history of. - Family history:: not pertinent. Screenin:00 Abuse screen: Denies threats or abuse. Denies injuries from another. Nutritional bp screening: No deficits noted. Tuberculosis screening: No symptoms or risk factors identified. Fall Risk None identified. Assessment: 15:00 General: SEE TRIAGE NOTE. bp 16:58 Reassessment: Patient appears in no apparent distress at this time. Patient and/or bp family updated on plan of care and expected duration. Pain level reassessed. PHLEBOTOMY AT B/S FOR BLOOD DRAW. 18:30 Reassessment: Patient appears in no apparent distress at this time. Patient and/or bp family updated on plan of care and expected duration. Pain level reassessed. Patient is alert, oriented x 3, equal unlabored respirations, skin warm/dry/pink. 19:15 Reassessment: PT D/C HOME AMBULATORY, DX WITH DIZZINESS/GIDDINESS. bp Vital Signs: 14:53 BP 154 / 73; Pulse 86; Resp 17; Temp 97.8; Pulse Ox 99% on R/A; Weight 88.9 kg (R); ca1 Height 5 ft. 6 in. (167.64 cm); 16:59 BP 159 / 78; Pulse 75; Resp 17; Pulse Ox 98% ; bp 18:30 BP 144 / 67; Pulse 73; Resp 16; Pulse Ox 99% ; bp 14:53 Body Mass Index 31.63 (88.90 kg, 167.64 cm) ca1 ED Course: 14:40 Patient arrived in ED. ds1 15:00 Patient has correct armband on for positive identification. Bed in low position. Call bp light in reach. Side rails up X2. 15:09 Triage completed. ca1 15:11 Arm band placed on right wrist. ca1 15:12 Christiano Dumont, RN is Primary Nurse. bp 15:28 Fercho Shi MD is Attending Physician. pooja 15:30 Inserted saline lock: 22 gauge in left forearm, using aseptic technique. bp 16:11 XRAY Chest (1 view) In Process Unspecified. EDMS 17:49 CT Head Brain wo Cont In Process Unspecified. EDMS 17:55 CT Head Angio In Process Unspecified. EDMS 17:[address] In Process Unspecified. EDMS 18:43 Alton Maurice MD is Referral Physician. pooja 19:15 No provider procedures requiring assistance completed. IV discontinued, intact, bp bleeding controlled, No redness/swelling at site. Pressure dressing applied. Administered Medications: 16:30 Drug: foLIC Acid 1 mg Route: IVPB; Site: left forearm; bp 18:46 Follow up: IV Status: Completed infusion; IV Intake: 100ml bp 18:20 Drug: Aspirin Chewable Tablet 324 mg Route: PO; bp 18:44 Follow up: Response: No adverse reaction bp 18:20 Drug: Thiamine 100 mg Route: IV; Rate: bolus; Site: left forearm; bp 18:44 Follow up: IV Status: Completed infusion; IV Intake: 100ml bp Intake: 18:44 IV: 100ml; Total: 100ml. bp 18:46 IV: 100ml; Total: 200ml. bp Outcome: 18:43 Discharge ordered by . pooja 19:16 Discharged to home ambulatory. bp 19:16 Condition: stable 19:16 Discharge instructions given to patient, Instructed on discharge instructions, follow up and referral plans. medication usage, Demonstrated understanding of instructions, follow-up care, medications, Prescriptions given X 2. 19:17 Patient left the ED. bp Signatures: Dispatcher [employer] EDMS Fercho Shi MD MD cha Sanford, Demi ds1 Christiano Dumont, RN RN bp Olivia Waller RN RN ca1
[2021-01-30] MEDS ORDERED: ASPIRIN 81 MG CHEWABLE TABLET ONE (18:48)
[2021-01-30] MEDS ORDERED: THIAMINE 200 MG/2 ML INJ ONE (18:48)
[2021-01-30 19:23] VITALS: TEMP 97.8
[2021-01-30 19:25] VITALS: BP 144/67; O2SAT 99
--- NOTE | 2021-01-31 10:47 | EKG ---
Test Date: 2021-01-30 Test Time: 17:20:11 Steel Placer: JEANNINE MEASUREMENT RESULTS: Intervals: Rate: 70 CA: 154 QRSD: 80 QT: 386 QTc: 416 Braymer: P: 51 CA: 154 QRS: 6 T: 56 INTERPRETIVE STATEMENTS: Normal sinus rhythm Normal ECG Compared to ECG 06/05/2018 09:33:02 Sinus bradycardia no longer present Electronically Signed On 01-31-21 10:46:39 CDT by Flaco Bassett
== END 2021-01-30 19:17 | disposition home or self-care (01) ==
LOC: ER 14:38
DX: R42 Dizziness and giddiness (principal); R53.1 Weakness; K21.9 Gastro-esophageal reflux disease without esophagitis; I10 Essential (primary) hypertension; E03.9 Hypothyroidism, unspecified
CPT/HCPCS: 96365; 93005; 87088; 85025; 87086; 80048; 36415; 83735; 85610; 80076; 84443; 81003; 84484; 83880; 70450; 70496; 70498; 71045; 99284; Q9967; J3411

== ENCOUNTER 2021-06-03 10:42 | Emergency (ER) | payer OTHER ==
[2021-06-03] MEDS ORDERED: LIDOCAINE VISCOUS 2% SOLN 15 ML UDC ONE (12:11)
[2021-06-03] MEDS ORDERED: NA CHLORIDE 0.9% 1,000 ML ONE (12:11)
[2021-06-03] MEDS ORDERED: ONDANSETRON 4 MG/2 ML VIAL ONE (12:11)
[2021-06-03] MEDS ORDERED: MAGNES/ALUMIN/SIMET 30ML UCUP ONE (12:11)
[2021-06-03 12:21] LABS: Absolute Lymphocytes (CBC) 1.3 K/uL (0.7-4.9); Basophils % 0.5 % (0-1.3); Lymphocytes % 15.4 % (15.3-44.8); MPV 9.6 fL (7.6-11.3); RBC Red Blood Cell Count 5.05 M/uL (3.86-4.86)
--- NOTE | 2021-06-03 12:44 | RAD REPORT ---
EXAM DESCRIPTION: CT - Abdomen Pelvis W Contrast - 06/03/2021 12:32 pm CLINICAL HISTORY: Abdominal pain/vomiting COMPARISON: 2008 TECHNIQUE: Computed axial tomography of the abdomen pelvis was obtained. 100 cc Isovue-300 was admin istered intravenously. Oral contrast was not requested which limits evaluation of bowel. All CT scans are performed using dose optimization technique as appropriate and may include automated exposure control or mA/KV adjustment according to patient size. FINDINGS: Cholecystectomy. Tiny hepatic lesion too small to characterize but probably benign. Spleen, pancreas, adrenal and kidneys appear unremarkable. There is no evidence of diverticulitis. 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 Umbilical hernia contains fat. The neck measures 3. 5 centimeters. Cystocele IMPRESSION: No acute abnormality is displayed.
[2021-06-03 13:00] LABS: ALT/SGPT 22 U/L (12-78); AST/SGOT 30 U/L (15-37); Albumin 4.1 g/dL (3.4-5.0); Alkaline Phosphatase 92 U/L (45-117); BUN Blood Urea Nitrogen 10 mg/dL (7-18); Bicarbonate 28 mmol/L (21-32); Bilirubin Direct 0.2 mg/dL (0-0.2); Bilirubin Total 0.7 mg/dL (0.2-1.0); Glucose Level 118 mg/dL (74-106); Lipase 104 U/L (73-393); Potassium 3.2 mmol/L (3.5-5.1); Protein, Total 8.5 g/dL (6.4-8.2); Sodium Level 140 mmol/L (136-145); Troponin (Emerg Dept Use Only) < 0.02 ng/mL (0.0-0.045)
--- NOTE | 2021-06-03 13:33 | EDPHYS ---
Physician Documentation [facility] Name: Mi Cleveland Age: 65 yrs Sex: Female : 1955 Arrival Date: 06/03/2021 Time: 10:46 Bed 6 Private MD: ED Physician Ender Avila HPI: 06/03 12:08 This 65 yrs old Female presents to ER via Ambulatory with complaints of rn Vomiting/Diarrhea. 12:08 The patient presents to the emergency department with nausea, vomiting, diarrhea. rn 12:09 Onset: The symptoms/episode began/occurred 4 day(s) ago. Possible causes: unknown. The rn symptoms are aggravated by nothing. The symptoms are alleviated by nothing. Associated signs and symptoms: Pertinent positives: diarrhea, hematuria, vomiting, Pertinent negatives: fever, GI bleeding. Severity of symptoms: At their worst the symptoms were moderate in the emergency department the symptoms are unchanged. The patient has not experienced similar symptoms in the past. The patient has not recently seen a physician. Patient reports 4 days of nausea/vomiting/diarrhea. No blood in stool or emesis. No fever. Reports mild abdominal cramping. No sick contacts. Had negative Covid test 2 days ago. Denies any cough or shortness of breath.. Historical: - Allergies: 11:25 No Known Allergies; vg1 - Home Meds: 11:25 amlodipine 5 mg tab 1 tab once daily [Active]; levothyroxine 50 mcg tab 1 tab once vg1 daily [Active]; omeprazole 40 mg Oral cpDR 1 cap once daily [Active]; pravastatin 10 mg Oral tab 1 tab once daily [Active]; memantine 10 mg Oral tab 1 tab 2 times per day [Active]; raloxifene 60 mg Oral tab 1 tab once daily [Active]; Protein powder mix [Active]; - PMHx: 11:25 GERD; Hypertension; Hypothyroidism; vg1 - Immunization history:: Adult Immunizations up to date, Client reports receiving the 2nd dose of the Covid vaccine. - Social history:: Smoking status: Patient denies any tobacco usage or history of. - Family history:: not pertinent. - Hospitalizations: : No recent hospitalization is reported. ROS: 12:09 Constitutional: Negative for fever, chills, and weight loss, Eyes: Negative for injury, rn pain, redness, and discharge, ENT: Negative for injury, pain, and discharge, Neck: Negative for injury, pain, and swelling, Cardiovascular: Negative for chest pain, palpitations, and edema, Respiratory: Negative for shortness of breath, cough, wheezing, and pleuritic chest pain, Abdomen/GI: Negative for constipation Back: Negative for injury and pain, : Negative for injury, bleeding, discharge, and swelling, MS/Extremity: Negative for injury and deformity, Skin: Negative for injury, rash, and discoloration, Neuro: Negative for headache, numbness, tingling, and seizure. 12:09 All other systems are negative. Exam: 12:09 Constitutional: This is a well developed, well nourished patient who is awake, alert, rn and in no acute distress. Head/Face: Normocephalic, atraumatic. Eyes: Pupils equal round and reactive to light, extra-ocular motions intact. ENT: Dry mucous membranes Cardiovascular: Regular rate and rhythm. No pulse deficits. Respiratory: No increased work of breathing, no retractions or nasal flaring. Abdomen/GI: Soft, non-tender Skin: Warm, dry MS/ Extremity: Pulses equal, no cyanosis. Neuro: Awake and alert, GCS 15 Vital Signs: 11:22 BP 144 / 73; Pulse 80; Resp 16; Temp 97.3; Pulse Ox 100% ; Weight 86 kg; Height 5 ft. 6 vg1 in. (167.64 cm); Pain 7/10; 13:16 BP 141 / 75; Pulse 79; Resp 17; Pulse Ox 100% on R/A; ld1 11:22 Body Mass Index 30.60 (86.00 kg, 167.64 cm) vg1 MDM: 11:30 Patient medically screened. rn 13:26 Differential diagnosis: Nonspecific abd pain, gastritis, cholecystitis, pancreatitis, rn appendicitis, diverticulitis, viral gastroenteritis, gastroenteritis. Data reviewed: vital signs, nurses notes, lab test result(s), radiologic studies, CT scan, and as a result, I will discharge patient. Data interpreted: saddle tree stitcher: rate is 79 beats/min, rhythm is normal sinus rhythm, regular, with no ectopy, Interpretation: normal rate, normal rhythm. Counseling: I had a detailed discussion with the patient and/or guardian regarding: the historical points, exam findings, and any diagnostic results supporting the discharge/admit diagnosis, lab results, radiology results, the need for outpatient follow up, to return to the emergency department if symptoms worsen or persist or if there are any questions or concerns that arise at home. Response to treatment: the patient's symptoms have markedly improved after treatment, and as a result, I will discharge patient. Special discussion: I discussed with the patient/guardian in detail that at this point there is no indication for admission to the hospital. It is understood, however, that if the symptoms persist or worsen the patient needs to return immediately for re-evaluation. ED course: Patient markedly improved. CT abdomen pelvis no acute findings. Mild dehydration. Patient feels much better after Zofran and fluids. Will DC home with as needed Zofran.. 06/03 11:38 Order name: Basic Metabolic Panel; Complete Time: 13:04 rn 06/03 11:38 Order name: CBC with Diff; Complete Time: 13: rn 06/03 11:38 Order name: Hepatic Function; Complete Time: 13: rn 06/03 11:38 Order name: Lipase; Complete Time: 13: rn 06/03 11:38 Order name: CT Abd/Pelvis - IV Contrast Only; Complete Time: 13:04 rn 06/03 11:38 Order name: Troponin (emerg Dept Use Only); Complete Time: 13:04 rn 06/03 11:38 Order name: IV Start; Complete Time: 11:53 rn 06/03 11:38 Order name: Labs collected and sent; Complete Time: 11:53 rn 06/03 11:38 Order name: EKG; Complete Time: 11:39 rn 06/03 11:38 Order name: EKG - Nurse/Tech; Complete Time: 11:41 rn Administered Medications: 11:52 Drug: NS 0.9% 1000 ml Route: IV; Rate: 1000 ml; Site: left antecubital; ap3 13:10 Follow up: Response: No adverse reaction; IV Status: Completed infusion; IV Intake: ll1 1000ml 11:53 Drug: GI Cocktail without - (Maalox Suspension 30 ml, Lidocaine Liquid 2 % 15 ap3 ml) Route: PO; 11:53 Drug: Zofran (Ondansetron) 4 mg Route: IVP; Site: left antecubital; ap3 Disposition Summary: 06/03/21 13:32 Discharge Ordered Location: Home rn Problem: new rn Symptoms: have improved rn Condition: Stable rn Diagnosis - Vomiting, unspecified rn - Diarrhea, unspecified rn - Dehydration rn Followup: rn - With: Private Physician - When: As needed - Reason: Recheck today's complaints, Re-evaluation by your physician Discharge Instructions: - Discharge Summary Sheet rn - Dehydration, Adult rn - Diarrhea, Adult rn - Nausea and Vomiting, Adult rn Forms: - Medication Reconciliation Form rn - Thank You Letter rn - Antibiotic churn driller helper - Prescription Opioid Use rn Prescriptions: - ondansetron 4 mg Oral tablet,disintegrating - take 1 tablet by ORAL route every 8 hours As needed; 20 tablet; Refills: 0, rn Product Selection Permitted Signatures: Dispatcher [employer] Ender Saldivar MD MD rn Prokisch, Amanda RN RN ap3 Shellie Burns, RN RN vg1 Markie, Baljit RN ll1
--- NOTE | 2021-06-03 13:33 | ER ---
Nurse's Notes [facility] Name: Mi Cleveland Age: 65 yrs Sex: Female : 1955 Arrival Date: 06/03/2021 Time: 10:46 Bed 6 Private MD: Diagnosis: Vomiting, unspecified;Diarrhea, unspecified;Dehydration Presentation: 06/03 11:22 Chief complaint: Patient states: Since Monday05/31/21 NVD, stated Epigastric pain that vg1 goes up to chest, throat and jaw. Coronavirus screen: Vaccine status: Patient reports receiving the 2nd dose of the covid vaccine. Ebola Screen: Patient negative for fever greater than or equal to 101.5 degrees Fahrenheit, and additional compatible Ebola Virus Disease symptoms. Initial Sepsis Screen: Does the patient meet any 2 criteria? No. Patient's initial sepsis screen is negative. Does the patient have a suspected source of infection? No. Patient's initial sepsis screen is negative. Risk Assessment: Do you want to hurt yourself or someone else? Patient reports no desire to harm self or others. Onset of symptoms was May 31, 2021. 11:22 Method Of Arrival: Ambulatory vg1 11:22 Acuity: TIMO 3 vg1 Triage Assessment: 11:25 General: Appears in no apparent distress. uncomfortable, Behavior is calm, cooperative. vg1 Pain: Complains of pain in epigastric area, chest, throat, and jaw. GI: Reports diarrhea, nausea, vomiting. Historical: - Allergies: 11:25 No Known Allergies; vg1 - Home Meds: 11:25 amlodipine 5 mg tab 1 tab once daily [Active]; levothyroxine 50 mcg tab 1 tab once vg1 daily [Active]; omeprazole 40 mg Oral cpDR 1 cap once daily [Active]; pravastatin 10 mg Oral tab 1 tab once daily [Active]; memantine 10 mg Oral tab 1 tab 2 times per day [Active]; raloxifene 60 mg Oral tab 1 tab once daily [Active]; Protein powder mix [Active]; - PMHx: 11:25 GERD; Hypertension; Hypothyroidism; vg1 - Immunization history:: Adult Immunizations up to date, Client reports receiving the 2nd dose of the Covid vaccine. - Social history:: Smoking status: Patient denies any tobacco usage or history of. - Family history:: not pertinent. - Hospitalizations: : No recent hospitalization is reported. Screenin:54 Abuse screen: Denies threats or abuse. Nutritional screening: No deficits noted. ap3 Tuberculosis screening: No symptoms or risk factors identified. Fall Risk None identified. Assessment: 11:53 General: Appears in no apparent distress. Behavior is calm, cooperative, appropriate ap3 for age. Pain: Complains of pain in xiphoid area and mid-sternal area Pain does not radiate. Neuro: Level of Consciousness is awake, alert, obeys commands, Oriented to person, place, time, situation, Appropriate for age Speech is normal. Cardiovascular: Patient's skin is warm and dry. Respiratory: Airway is patent Respiratory effort is even, unlabored, Respiratory pattern is regular, symmetrical. GI: Abdomen is round Reports nausea, vomiting. : No signs and/or symptoms were reported regarding the genitourinary system. 13:16 Reassessment: Patient appears in no apparent distress at this time. Patient and/or ld1 family updated on plan of care and expected duration. Pain level reassessed. Patient is alert, oriented x 3, equal unlabored respirations, skin warm/dry/pink. Vital Signs: 11:22 BP 144 / 73; Pulse 80; Resp 16; Temp 97.3; Pulse Ox 100% ; Weight 86 kg; Height 5 ft. 6 vg1 in. (167.64 cm); Pain 7/10; 13:16 BP 141 / 75; Pulse 79; Resp 17; Pulse Ox 100% on R/A; ld1 11:22 Body Mass Index 30.60 (86.00 kg, 167.64 cm) vg1 ED Course: 10:46 Patient arrived in ED. mr 11:25 Triage completed. vg1 11:25 Arm band placed on. EKG completed in triage. Results shown to MD. vg1 11:29 Ender Avila MD is Attending Physician. rn 11:30 Patient placed in an exam room, on a stretcher. ll1 11:35 Initial lab(s) drawn, by me, sent to lab. Inserted saline lock: 20 gauge in left kj1 antecubital area, using aseptic technique. Blood collected. 11:40 Chloe Black, RN is Primary Nurse. ap3 11:54 Patient has correct armband on for positive identification. Bed in low position. Call ap3 light in reach. Side rails up X2. lunchroom monitor on. Pulse ox on. NIBP on. Door closed. Noise minimized. Warm blanket given. Head of bed. 12:31 CT Abd/Pelvis - IV Contrast Only In Process Unspecified. EDMS 13:41 No provider procedures requiring assistance completed. IV discontinued, intact, ld1 bleeding controlled, No redness/swelling at site. Administered Medications: 11:52 Drug: NS 0.9% 1000 ml Route: IV; Rate: 1000 ml; Site: left antecubital; ap3 13:10 Follow up: Response: No adverse reaction; IV Status: Completed infusion; IV Intake: ll1 1000ml 11:53 Drug: GI Cocktail without - (Maalox Suspension 30 ml, Lidocaine Liquid 2 % 15 ap3 ml) Route: PO; 11:53 Drug: Zofran (Ondansetron) 4 mg Route: IVP; Site: left antecubital; ap3 Intake: 13:10 IV: 1000ml; Total: 1000ml. ll1 Outcome: 13:32 Discharge ordered by . rn 13:41 Discharged to home ambulatory. ld1 13:41 Condition: stable 13:41 Discharge instructions given to patient, Instructed on discharge instructions, follow up and referral plans. medication usage, Demonstrated understanding of instructions, follow-up care, medications, Prescriptions given X 1. 13:42 Patient left the ED. ld1 Signatures: Dispatcher [employer] [facility] Christin Siegel AustinEnder MD MD rn Prokisch, Amanda, RN RN ap3 Tabitha Drake1 Shellie Burns RN RN linus1 Baljit Aden RN RN ll1 Florence Warren RN RN ld1
[2021-06-03 13:48] VITALS: TEMP 97.3; O2SAT 100
[2021-06-03 13:49] VITALS: BP 141/75
--- NOTE | 2021-06-03 15:56 | EKG ---
Test Date: 2021-06-03 Test Time: 11:22:17 Medical Leader: BAYRON MEASUREMENT RESULTS: Intervals: Rate: 73 MN: 160 QRSD: 76 QT: 376 QTc: 414 [place]: P: 61 MN: 160 QRS: 16 T: 53 INTERPRETIVE STATEMENTS: Normal sinus rhythm Normal ECG Compared to ECG 01/30/2021 17:20:11 No significant changes Electronically Signed On 06-03-21 15:56:14 CDT by Flaco Bassett
== END 2021-06-03 13:42 | disposition home or self-care (01) ==
LOC: ER 10:42
DX: E86.0 Dehydration (principal); R19.7 Diarrhea, unspecified; I10 Essential (primary) hypertension; E03.9 Hypothyroidism, unspecified
CPT/HCPCS: 96361; 93005; 85025; 80048; 36415; 82565; 80076; 84484; 83690; 74177; 96374; 99284; Q9967; J7030; J2405

== ENCOUNTER 2022-01-04 09:24 | Day surgery (SDC) | payer OTHER ==
[2022-01-04] MEDS ORDERED: Ringers Lactate 1,000 ML IV ONE (09:42)
[2022-01-04] MEDS ORDERED: FENTANYL CITR 100 MCG/2 ML ONE (09:53)
[2022-01-04] MEDS ORDERED: propofoL 200 MG/20 ML VIAL IV ONE (09:53)
[2022-01-04] MEDS ORDERED: MIDAZOLAM HCL 2 MG/2 ML INJ ONE (09:54)
[2022-01-04] MEDS ORDERED: LIDOCAINE 1% MPF 5 ML VIAL ONE (09:54)
[2022-01-04] MEDS ORDERED: dexAMETHasone 10 MG/ML VIAL ONE (09:54)
[2022-01-04] MEDS ORDERED: ONDANSETRON 4 MG/2 ML VIAL ONE (09:54)
[2022-01-04] MEDS ORDERED: SILVER NITRATE 1 APPL TOP ONE (10:02)
[2022-01-04] MEDS ORDERED: LIDOCAINE 1% W/EPI 1:100,000 10 ML VIAL ONE (10:02)
[2022-01-04] MEDS ORDERED: IBUPROFEN 200 MG TAB PO PRN (11:22)
--- NOTE | 2022-01-04 11:25 | P.BOP ---
Preoperative diagnosis: pelvic pain, polyp Postoperative diagnosis: same Primary procedure: Hysteroscopy polypectomy, d/c Estimated blood loss: min Specimen: polyp and EMC Findings: polyp Anesthesia: General Complications: None Transferred to: Recovery Room Condition: Good
[2022-01-04] MEDS ORDERED: KETOROLAC 30 MG/ML INJ ONE (11:45)
[2022-01-04 12:24] VITALS: O2SAT 99
[2022-01-04 13:24] VITALS: BP 123/74; TEMP 97.3
--- NOTE | 2022-01-04 15:01 | OP ---
Date of Procedure: 01/04/2022 Surgeon: Sherry Yu MD General Office Dispatcher: No assistants. Preoperative Diagnoses: Pelvic pain, uterine prolapse, and polyps. Postoperative Diagnoses: Pelvic pain, uterine prolapse, and polyps. Primary Procedures: Hysteroscopy, polypectomy, D and C. Complications: No complications. Drains: No drains. Anesthesia: General with LMA. Specimens: Polyp and curettings in the stalk for the MyoSure Lite. Findings: Endometrial polyp in the lateral wall at the fundus as well as the posterior camacho. Endom etrial thickening was noted. Indication: The patient is a 66-year-old female, who presented with uterovaginal prolapse. Ultrasou nd showed endometrial thickening, possible polyp, so she was consented for endometrial visualization with cavity sampling, possible polypectomy. Procedure In Detail: After informed consent was verified, she was taken back to OR, placed in supine fashion on the table. General anesthesia through LMA was given. The patient was placed in a dorsal lithotomy position. Vulva and vagina were prepped and draped in a sterile fashion. Speculum was pl aced to expose the cervix. Allis clamp was used to grasp the anterior lip of the cervix to 20-Mongolian . MyoSure scope was taken and using the entire system, it was primed. Then, the MyoSure scope was i ntroduced through the cervical canal into the uterine cavity under direct vision. Findings as above were noted. The drainage tubing was removed and MyoSure Lite was introduced through this. Then, I did polypectom y and D and C with MyoSure Lite. Both polyps were removed. The scope was removed. Endometrial samp mark was handed out for permanent pathology. Instrument, needle, and sponge counts were correct. The patient tolerated the procedure well. The fluid appeared to be 800, but most of the fluid had been d rained onto the drapes since antibiotic drape was not catching the fluid coming back from the cervica l efflux. The patient will follow up with me in 1 week. Instrument, needle, and sponge counts correct. She wa s recovered from anesthesia and taken to PACU in stable condition. She will follow up in 1 week. AARON/RITU Voice ID: [id number] Report ID: [id number]
[2022-01-05] MEDS ORDERED: AMLODIPINE 10 MG TAB PO SCH (06:00)
[2022-01-05] MEDS ORDERED: LEVOTHYROXINE SOD 0.05 MG TABLET PO SCH (06:00)
[2022-01-05] MEDS ORDERED: MEMANTINE HCL 10 MG TABLET PO SCH (09:00)
[2022-01-05] MEDS ORDERED: HOME MED 1 EA UNK (Donepezil Hcl [Donepezil Hcl] 10 MG Tablet) PO SCH (09:00)
[2022-01-05] MEDS ORDERED: RALOXIFENE HCL 60 MG TAB PO SCH (09:00)
[2022-01-05] MEDS ORDERED: HOME MED 1 EA UNK (Lisinopril/Hydrochlorothiazide [Lisinopril-Hctz 20-12.5 Mg Tab] Tablet) PO SCH (09:00)
[2022-01-05] MEDS ORDERED: HOME MED 1 EA UNK (Pravastatin Sodium [Pravastatin Sodium] 10 MG Tablet) PO SCH (09:00)
[2022-01-05] MEDS ORDERED: HOME MED 1 EA UNK (Omeprazole [Prilosec] 40 MG Capsule.Dr) PO SCH (09:00)
== END 2022-01-04 13:15 | disposition home or self-care (01) ==
LOC: OR 09:24
PROVIDERS: ATTEND Obstetrics & Gynecology
PROC: 0UDB7ZX Extraction of Endometrium, Via Natural or Artificial Opening, Diagnostic (ICD-10-PCS; 2022-01-04)
PROC: 0UJD8ZZ Inspection of Uterus and Cervix, Via Natural or Artificial Opening Endoscopic (ICD-10-PCS; 2022-01-04)
PROC: 0UB97ZX Excision of Uterus, Via Natural or Artificial Opening, Diagnostic (ICD-10-PCS; principal; 2022-01-04 10:30)
DX: R10.2 Pelvic and perineal pain (principal); N84.0 Polyp of corpus uteri; N81.2 Incomplete uterovaginal prolapse; N81.11 Cystocele, midline; N39.46 Mixed incontinence; R15.9 Full incontinence of feces; Z20.822 Contact with and (suspected) exposure to COVID-19
CPT/HCPCS: 88305; 58558; U0003; J2704; J2250; J3010; J1100; J7120; J2405

== ENCOUNTER 2022-11-22 06:34 | Observation (INO) | payer OTHER ==
[2022-11-17 11:45] LABS: Urine Bacteria None Seen /HPF (<20); Urine Bilirubin NEGATIVE (Negative); Urine Blood Trace (Negative); Urine Clarity Clear (Clear); Urine Color Light-Yellow (Yellow); Urine Glucose NEGATIVE (Negative); Urine Mucus Slight /HPF (None Seen); Urine Protein NEGATIVE (Negative); Urine RBC <5 /HPF (None Seen); Urine Urobilinogen Normal (Normal)
[2022-11-21 08:22] LABS: Absolute Lymphocytes (CBC) 2.1 K/uL (0.7-4.9); Hematocrit 42.7 % (36.0-45.0); Lymphocytes % 29.1 % (15.3-44.8); MCV 92.4 fL (80-100); MPV 8.9 fL (7.6-11.3); RBC Red Blood Cell Count 4.63 M/uL (3.86-4.86)
[2022-11-21 08:35] LABS: Protime INR 1.02
[2022-11-21 08:39] LABS: Potassium 3.6 mEq/L (3.5-5.1)
[2022-11-21 08:40] LABS: SARS-CoV-2 Antigen Rapid Res Negative (Negative)
[2022-11-22] MEDS ORDERED: CEFAZOLIN SODIUM 1 GM/VIAL ONE (06:56)
[2022-11-22] MEDS: NA CHLORIDE 0.9% 100 ML ONE ×2 (06:57→07:00)
[2022-11-22] MEDS ORDERED: LIDOCAINE 1% W/EPI 1:100,000 30 ML VIAL ONE (06:57)
[2022-11-22] MEDS ORDERED: VASOPRESSIN 20 UNIT/ML VIAL ONE (06:57)
[2022-11-22] MEDS: Ringers Lactate 1,000 ML IV ONE ×2 (07:00→08:15)
[2022-11-22] MEDS ORDERED: dexAMETHasone 10 MG/ML VIAL ONE (07:01)
[2022-11-22] MEDS ORDERED: FENTANYL CITR 250 MCG/5 ML ONE (07:01)
[2022-11-22] MEDS ORDERED: MIDAZOLAM HCL 2 MG/2 ML INJ ONE (07:01)
[2022-11-22] MEDS ORDERED: ROCURONIUM 50 MG/5 ML VIAL IV ONE (07:01)
[2022-11-22] MEDS ORDERED: propofoL 200 MG/20 ML VIAL IV ONE (07:01)
[2022-11-22] MEDS ORDERED: LIDOCAINE 2% MPF 5 ML VIAL ONE (07:12)
[2022-11-22] MEDS ORDERED: ONDANSETRON 4 MG/2 ML VIAL ONE (07:12)
[2022-11-22] MEDS: CEFAZOLIN SODIUM 2 GM/VIAL ONE ×2 (08:00→08:31)
[2022-11-22] MEDS ORDERED: EPHEDRINE SULF 50 MG/ML VIAL ONE (08:04)
[2022-11-22] MEDS ORDERED: Ringers Lactate 1,000 ML IV ONE (08:35)
[2022-11-22] MEDS ORDERED: ONDANSETRON 4 MG/2 ML VIAL IV PRN (10:58)
[2022-11-22] MEDS ORDERED: ACETAMINOPHEN 500 MG TAB PO PRN (10:58)
[2022-11-22] MEDS ORDERED: MORPHINE 2 MG/ML SYR IV PRN (10:58)
[2022-11-22] MEDS ORDERED: PROMETHAZINE INJ 25 MG/ML AMP IV PRN (10:58)
[2022-11-22] MEDS: Ringers Lactate 1,000 ML IV SCH ×2 (11:00→16:59)
--- NOTE | 2022-11-22 11:07 | P.BOP ---
Preoperative diagnosis: [id number]/posterior wall apical/Incomplete utvg prolapse, KRISSY Postoperative diagnosis: same Primary procedure: B/L SSLFcervicocolpopexy,Ant biologicgraft aug/post wall,enterocele repair Secondary procedure: TO-MUS (TVT-O) cystoscopy Compressor Stations Superintendent: Sheba Parnell Estimated blood loss: 100 Specimen: none Findings: 0/+1/-2/5/mod/8/0/+1/-5, ant wall 8x6x5 graft, cysto neg,patent ureters Anesthesia: General Complications: None Drain(s): Urinary catheter Implants: coloplast biologic graft and TVT-O Fluids & blood products: 1700 LR, UO 150 Transferred to: Recovery Room Condition: Good
--- OUTSIDE RECORDS SUMMARY | 2022-11-22 12:12 | XMS REPORT | Continuity of Care Document ---
:1955 Author Organization [facility] t Address [address] [place] [address] Care Team Providers Name Role Phone Yaya Gillespie Attending Clinician Unavailable KARENA STILL Attending Clinician Unavailable KALEB WORTHINGTON Attending Clinician Unavailable [id number] Attending Clinician Unavailable JULISA MCCONNELL Attending Clinician Unavailable [id number] Attending Clinician Unavailable TRACEY GOOD Attending Clinician Unavailable Payers Payer Name Policy Type Policy Number Effective Date Expiration Date Charli barney MICHELL ROWLAND PPO 5 [id number] 2022 00:00:00 WEL NO 7 [id number] 2022 PREMIUM OPEN 00:00:00 (PPO) OA [employer] C1 [id number] [facility] AETNA O [id number] 2015 00:00:00 [employer] C1 [id number] [facility] Well[employer] C1 [id number] [facility] Well[employer] C1 [id number] [facility] Problems Condition Condition Condition Status Onset Resolution Last Treating Co mments Source Name Details Category Date Date Treatment Clinician Date Hypothyroi Hypothyroi Disease Active 2021-09 K bulmaro dism dism 0-04 Seybold (acquired) (acquired) 00:00: - 00 Externa l Gastroesop Gastroesop Disease Active 2021-09 Argelia chamberlain hageal hageal 0-04 Seybold reflux reflux 00:00: - disease disease 00 Externa l Abdominal Abdominal Disease Active 2021-09 Rd sey pain pain 0-04 Seybold 00:00: - 00 Externa l Hyperlipid Hyperlipid Disease Active 2021-09 Argelia avila emia 0-04 Seybold 00:00: - 00 Externa l [id number] Hypothyroi Problem Active Com mon dism, [facility] unspecifie - [facility] d [facility] [id number] Paresthesi Problem Active Co mmon a of both [facility] legs [facility] [id number] Pain in Problem Active Common left [facility] shoulder [facility] [id number] Numbness Problem Active Comm on in both [facility] hands [facility] [id number] Hypertensi Problem Active Com mon on, Spirit unspecifie - [facility] d [facility] [id number] Gastric Problem Active Commo n erosion, [facility] unspecifie [facility] d [facility] [id number] Depression Problem Active Co mmon screening [facility] [id number] Other Problem Active Common chronic [facility] pain [facility] [id number] Peripheral Problem Active Co mmon edema [facility] Memory Memory Problem Active Common loss loss [facility] [id number] Hyperchole Problem Active Com mon sterolemia [facility] [id number] Ob[place] [address] (BMI Spirit 30.0-34.9) [facility] [id number] Essential Problem Active Comm on hypertensi Spirit on [facility] [id number] Gastritis Problem Active Commo n without Spirit bleeding, [facility] gastritis type [id number] Hiatal Problem Active Common hernia [facility] [id number] Esophagiti Problem Active Com mon s Spirit determined [facility] by [facility] [id number] Myalgia Problem Active Common [facility] [id number] Hot Problem Active Common flashes [facility] [id number] Paresthesi Problem Active Com mon a [facility] [id number] Hyperglyce Problem Active Com mon jossie Spirit [facility] [id number] Dizziness Problem Active Com mon Spirit [facility] [id number] Neck pain Problem Active Comm on [facility] [id number] Low back Problem Active Comm on pain [facility] [id number] Arthralgia Problem Active Com mon , Spirit unspecifie - [facility] d joint [facility] [id number] Pain of Problem Active Common upper [facility] abdomen [facility] [id number] Sweating Problem Active Commo n increase [facility] [id number] Generalize Problem Active Com mon d weakness [facility] [id number] Acute pain Problem Active Com mon of left Spirit knee [facility] 72988443 Left hip Problem Active Commo n pain [facility] [id number] 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 [facility] [id number] Complex Problem Active Commo n tear of Spirit medial - [facility] meniscus [facility] of right [facility] knee as [facility] current Center injury, subsequent encounter [id number] Peripheral Problem Active Co mmon tear of Spirit lateral - [facility]I meniscus [facility] of right [facility] knee as [facility] current [facility] injury, subsequent encounter Allergies, Adverse Reactions, Alerts Allergy Allergy Status Severity Reaction(s) Onset Inactive Treating Comm ents Source Name Type Date Date Clinician NO KNOWN Drug Active Univers ALLERGIE Class ity of [facility] Social History Social Habit Start Date Stop Date Quantity Comments Source History of [facility] - Tobacco Use [facility] Sex Assigned At [facility] fr[place] - [facility] Alcohol intake 2022-06-09 2022-06-09 Lifetime Ruth Hoang bold - 00:00:00 00:00:00 non-drinker External (finding) Tobacco use and 2022-06-07 2022-06-07 Smokeless tobacco Ke raphael Hookerold - exposure 00:00:00 00:00:00 non-user External Smoking Status Start Date Stop Date Source Never smoked tobacco Ruth Hooker old - External Former Smoker 2021-08-13 00:00:00 2021-08-13 00:00:00 Common S pirit [facility] Ce nter Medications Ordered Filled Start Stop Current Ordering Indication Dosage Frequency Signature Comments Components Source Medication Medication Date Date Medication? Clinician (SIG) Name Name Amlodipine 2021-09 Yes [id number] 1{tbl} Take 1 Ruth Besylate 5 0-06 tablet by Seyb old MG oral 10:16: mouth - Tablet 44 daily Externa l Amlodipine 2021-09 Yes [id number] 1{tbl} Take 1 Ruth Besylate 5 0-04 tablet by Seyb old MG oral 10:17: mouth - Tablet 15 daily Externa l Pantoprazol Yes [id number] 40mg Take 40 mg Ruth e Sodium 40 9-07 by mouth Seyb old MG oral 00:00: daily - Tablet 00 Externa Delayed l Response Pantoprazol Yes [id number] 40mg Take 40 mg Ruth e Sodium 40 9-07 by mouth Seyb old MG oral 00:00: daily - Tablet 00 Externa Delayed l Response Pravastatin Yes [id number] 40mg Take 40 mg Ruth Sodium 40 8-31 by mouth Seybol d MG oral 00:00: at bedtime - Tablet 00 Externa l Pravastatin 0 Yes [id number] 40mg Take 40 mg Ruth Sodium 40 8-31 by mouth Seybol d MG oral 00:00: at bedtime - Tablet 00 Externa l DONEPEZIL 0 Yes 10mg Take 10 mg Ke lsey HYDROCHLORI 8-15 by mouth 2 Se ybold DE 10 MG 00:00: times - oral Tablet 00 daily Externa l DONEPEZIL 0 Yes 10mg Take 10 mg Ke lsey HYDROCHLORI 8-15 by mouth 2 Se ybold DE 10 MG 00:00: times - oral Tablet 00 daily Externa l LISINOPRIL- 2021-0 Yes [id number] 1{tbl} Take 1 Ruth HCTZ 20-25 8-04 tablet by Seyb old MG oral 00:00: mouth - Tablet 00 every Externa morning l LISINOPRIL- 2021-0 Yes [id number] 1{tbl} Take 1 Ruth HCTZ 20-25 8-04 tablet by Seyb old MG oral 00:00: mouth - Tablet 00 every Externa morning l Memantine 0 Yes 10mg Take 10 mg Ke lsey HCl 10 MG 8-01 by mouth 2 Seyb old oral Tablet 00:00: times - 00 daily Externa l Memantine 2022-0 Yes 10mg Take 10 mg Ke lsey HCl 10 MG 8-01 by mouth 2 Seyb old oral Tablet 00:00: times - 00 daily Externa l Levothyroxi Yes [id number] 50ug Take 50 Ruth ne Sodium 7-31 mcg by Seybold 50 MCG oral 00:00: mouth - Tablet 00 every Externa morning l Levothyroxi Yes [id number] 50ug Take 50 Ruth ne Sodium 7-31 mcg by Seybold 50 MCG oral 00:00: mouth - Tablet 00 every Externa morning l Dicyclomine Yes [id number] 1{tbl} Q.[id number] Take 1 Ruth HCl 20 MG 7-26 [id number] tablet by Seybold oral Tablet 00:00: 3D mouth - 00 every 8 Externa hours as l needed Dicyclomine Yes [id number] 1{tbl} Q.[id number] Take 1 Ruth HCl 20 MG 7-26 [id number] tablet by Seybold oral Tablet 00:00: 3D mouth - 00 every 8 Externa hours as l needed Multivitami Multivitami Yes Suzette not Common n & Mineral n & Mineral Millender defined [facility] Pravastatin Pravastatin Yes Suzette 1 tablet Common Sodium Sodium Millender in evening [facility] Zestoretic Zestoretic Yes Suzette 1 tablet Common Millender [facility] Levothyroxi Levothyroxi Yes Suzette 1 tablet Common ne Sodium ne Sodium Millender on an Spirit empty - [facility] stomach in [facility] Amlodipine Amlodipine Yes Suzette 1 tablet Common Besylate Besylate Millender Sp fr[place]ka [facility] Omeprazole Omeprazole Yes Suzette 1 capsule Common Millender [facility] Zestoretic Zestoretic No 1{table QD Zestoretic 20-12.5 MG 20-12.5 MG t} 20-12.5 MG Lisinopril- Lisinopril- No 1{table QD Lisinopril hydroCHLORO hydroCHLORO t} -hydroCHLO thiazide thiazide ROthiazide 10-12.5 MG 10-12.5 MG 10-12.5 MG Levothyroxi Levothyroxi No QD Levothyrox ne Sodium ne Sodium ine Sodium 50 MCG 50 MCG 50 MCG Pravastatin Pravastatin No QD Pravastati Sodium 10 Sodium 10 n Sodium MG MG 10 MG Omeprazole Omeprazole No 1{capsu QD Omeprazole 40 MG 40 MG le} 40 MG Multivitami Multivitami No Multivitam n & Mineral n & Mineral in & - - Mineral - Amlodipine Amlodipine No 1{table QD Amlodipine Besylate 10 Besylate 10 t} Besylate MG MG 10 MG Levothyroxi Levothyroxi No QD Levothyrox ne Sodium ne Sodium ine Sodium 50 MCG 50 MCG 50 MCG Zestoretic Zestoretic No 1{table QD Zestoretic 20-12.5 MG 20-12.5 MG t} 20-12.5 MG Pravastatin Pravastatin No QD Pravastati Sodium 10 Sodium 10 n Sodium MG MG 10 MG Omeprazole Omeprazole No 1{capsu QD Omeprazole 40 MG 40 MG le} 40 MG Multivitami Multivitami No Multivitam n & Mineral n & Mineral in & - - Mineral - Amlodipine Amlodipine No 1{table QD Amlodipine Besylate 10 Besylate 10 t} Besylate MG MG 10 MG Levothyroxi Levothyroxi No QD Levothyrox ne Sodium ne Sodium ine Sodium 50 MCG 50 MCG 50 MCG Zestoretic Zestoretic No 1{table QD Zestoretic 20-12.5 MG 20-12.5 MG t} 20-12.5 MG Lisinopril- Lisinopril- No 1{table QD Lisinopril Hydrochloro Hydrochloro t} -Hydrochlo thiazide thiazide rothiazide 10-12.5 MG 10-12.5 MG 10-12.5 MG Levothyroxi Levothyroxi No QD Levothyrox ne Sodium ne Sodium ine Sodium 50 MCG 50 MCG 50 MCG Zestoretic Zestoretic No 1{table QD Zestoretic 20-12.5 MG 20-12.5 MG t} 20-12.5 MG Raloxifene Raloxifene No 1{table QD Raloxifene HCl 60 MG HCl 60 MG t} HCl 60 MG Omeprazole Omeprazole No 1{capsu QD Omeprazole 40 MG 40 MG le} 40 MG Multivitami Multivitami No Multivitam n & Mineral n & Mineral in & - - Mineral - Amlodipine Amlodipine No 1{table QD Amlodipine Besylate 10 Besylate 10 t} Besylate MG MG 10 MG Pravastatin Pravastatin No QD Pravastati Sodium 10 Sodium 10 n Sodium MG MG 10 MG Pravastatin Pravastatin No QD Pravastati Sodium 10 Sodium 10 n Sodium MG MG 10 MG Memantine Memantine No Memantine HCl HCl HCl Lisinopril- Lisinopril- No 1{table QD Lisinopril Hydrochloro Hydrochloro t} -Hydrochlo thiazide thiazide rothiazide 10-12.5 MG 10-12.5 MG 10-12.5 MG Omeprazole Omeprazole No 1{capsu QD Omeprazole 40 MG 40 MG le} 40 MG Zestoretic Zestoretic No 1{table QD Zestoretic 20-12.5 MG 20-12.5 MG t} 20-12.5 MG Levothyroxi Levothyroxi No QD Levothyrox ne Sodium ne Sodium ine Sodium 50 MCG 50 MCG 50 MCG Amlodipine Amlodipine No 1{table QD Amlodipine Besylate 10 Besylate 10 t} Besylate MG MG 10 MG Multivitami Multivitami No Multivitam n & Mineral n & Mineral in & - - Mineral - Raloxifene Raloxifene No 1{table QD Raloxifene HCl 60 MG HCl 60 MG t} HCl 60 MG Memantine Memantine No Memantine HCl HCl HCl amLODIPine amLODIPine No 1{table QD amLODIPine Besylate 10 Besylate 10 t} Besylate MG MG 10 MG Multivitami Multivitami No Multivitam n & Mineral n & Mineral in & - - Mineral - Omeprazole Omeprazole No 1{capsu QD Omeprazole 40 MG 40 MG le} 40 MG Pravastatin Pravastatin No QD Pravastati Sodium 10 Sodium 10 n Sodium MG MG 10 MG Raloxifene Raloxifene No 1{table QD Raloxifene HCl 60 MG HCl 60 MG t} HCl 60 MG Immunizations Ordered Immunization Filled Immunization Date Status Commen ts Source Name Name Influenza Virus 2022-06-07 Skye whitaker Vaccine, 00:00:00 - External Quadrivalent, High Dose, Age 65 And Up Influenza Virus 2022-06-07 Completed Ruth whitaker Vaccine, 00:00:00 - External Quadrivalent, High Dose, Age 65 And Up Shingles IM 2021-11-24 Completed Ruth Seybol d (Shingrix) 00:00:00 - External Shingles IM 2021-11-24 Completed Ruth Seybol d (Shingrix) 00:00:00 - External Shingles IM 2021-09-05 Completed Ruth Seybol d (Shingrix) 00:00:00 - External Shingles IM 2021-09-05 Completed Ruth Seybol d (Shingrix) 00:00:00 - External Flucelvax - single Flucelvax - single 2018-06-04 Completed [facility] - dose syringe dose syringe 11:52:00 [facility] Flucelvax - single Flucelvax - single 2018-06-04 Completed [facility] - dose syringe dose syringe 11:52:00 [facility] Flucelvax - single Flucelvax - single 2018-06-04 Completed [facility] - dose syringe dose syringe 11:52:00 [facility] Flucelvax - single Flucelvax - single 2018-06-04 Completed [facility] - dose syringe dose syringe 11:52:00 [facility] Flucelvax - single Flucelvax - single 2018-06-04 Completed [facility] - dose syringe dose syringe 11:52:00 [facility] Flucelvax Flucelvax 2018-06-04 Completed [facility] - 00:00:00 [facility] Vital Signs Vital Name Observation Time Observation Value Comments Source Systolic blood 2022-06-09 15:16:00 126 mm[Hg] Ruth Ericksonybold - pressure External Diastolic blood 2022-06-09 15:16:00 66 mm[Hg] Lindsey guallpa Seybold - pressure External Heart rate 2022-06-09 15:16:00 80 /min Ruth espinosabold - External Respiratory rate 2022-06-09 15:16:00 16 /min Prisca Edwards - External Body height 2022-06-09 15:16:00 167.6 cm Ruth espinosaborosemary - External Body weight 2022-06-09 15:16:00 82.101 kg Ruth espinosabold - External BMI 2022-06-09 15:16:00 29.21 kg/m2 Ruth S eybold - External Heart rate 2022-06-07 15:02:00 66 /min Ruth Augustin eybold - External Body temperature 2022-06-07 15:02:00 36.78 Che Prisca espinosa Seybold - External Respiratory rate 2022-06-07 15:02:00 15 /min Prisca espinosa Seybold - External Body height 2022-06-07 15:02:00 167.6 cm Ruth espinosabold - External Body weight 2022-06-07 15:02:00 83.008 kg Ruth Augustin eybold - External BMI 2022-06-07 15:02:00 29.54 kg/m2 Ruth Augustin eybold - External Oxygen saturation in 2022-06-07 15:02:00 95 /min Ruth Edwards - Arterial blood by External Pulse oximetry height 2021-08-13 10:30:00 65 [in_i] [facility] weight 2021-08-13 10:30:00 185.1 [lb_av] [facility] bmi 2021-08-13 10:30:00 30.80 kg/m2 [facility] height 2020-11-30 08:30:00 65 [in_i] [facility] weight 2020-11-30 08:30:00 187.4 [lb_av] [facility] temperature 2020-11-30 08:30:00 97.3 [degF] [facility] bmi 2020-11-30 08:30:00 31.18 kg/m2 [facility] blood pressure 2020-11-30 08:30:00 147 mm[Hg] [facility] - systolic [facility] blood pressure 2020-11-30 08:30:00 91 mm[Hg] [facility] - diastolic [facility] height 2020-10-01 08:00:00 65 [in_i] [facility] weight 2020-10-01 08:00:00 195 [lb_av] [facility] temperature 2020-10-01 08:00:00 97.1 [degF] Common S [facility] bmi 2020-10-01 08:00:00 32.45 kg/m2 Common S pirit [facility] blood pressure 2020-10-01 08:00:00 132 mm[Hg] [facility] - systolic [facility] blood pressure 2020-10-01 08:00:00 76 mm[Hg] [facility] - diastolic [facility] Procedures Procedure Date / Time Performed Performing Clinician Souremanuel e QUANTAFLO 2022-06-07 16:05:05 Tracey Good Seybold - External Encounters Start End Encounter Admission Attending Care Care Encounter Source Date/Time Date/Time Type Type Clinicians Facility Department ID 2022-11-03 Outpatient Kattegummul STLMLC STLMLC [id number] Common 16:09:00 a, Yaya 63434 [facility] 2022-10-31 Outpatient Kattegummul STLMLC STLMLC [id number] Common 11:08:00 a, Yaya 19773 [facility] 2021-09-29 Outpatient Kattegummul STLMLC STLMLC [id number] Common 12:29:48 a, Yaya 73682 [facility] 2021-09-29 Outpatient Kattegummul STLMLC STLMLC [id number] Common 12:26:12 a, Yaya 77481 [facility] 2022-10-11 2022-10-11 Outpatient RUTH STILL [id number] Ruth 00:00:00 00:00:00 KARENA Seybol d 2022-07-12 2022-07-12 Outpatient RUTH WORTHINGTON [id number] Ruth 09:20:00 09:20:00 KALEB Seybo ld 2022-06-09 2022-06-09 Outpatient [id number]-[id number] RUTH WASHBURN [id number] Ruth 14:50:00 14:50:00 Seybol d 2022-06-09 2022-06-09 Outpatient RUTH MCCONNELL [id number] Ruth 10:30:00 10:30:00 JULISA Hooker kurtis 2022-06-07 2022-06-07 Outpatient LAB90 RUTH WASHBURN [id number] Ruth 11:10:00 11:10:00 Seybol d 2022-06-07 2022-06-07 Outpatient FLORENTINO RUTH WASHBURN [id number] Ruth 09:45:00 09:45:00 TRACEY Hookerol d 2021-08-13 2021-08-13 OFFICE STLMLC STLMLC [id number] Co mmon 00:00:00 00:00:00 VISIT EST Spir it PT LEVEL 3 - [facility] 2020-11-30 2020-11-30 OFFICE STLMLC STLMLC [id number] Co mmon 00:00:00 00:00:00 VISIT EST Spir it PT LEVEL 3 - [facility] 2020-11-21 2020-11-21 Outpatient [facility] [id number] Univers 12:25:00 12:25:00 [facility] 2020-10-31 2020-10-31 Outpatient [facility] [id number] Univers 12:05:00 12:05:00 [facility] 2020-10-01 2020-10-01 OFFICE STLMLC STLMLC [id number] Co mmon 00:00:00 00:00:00 VISIT NEW Spir it PT LEVEL 4 - [facility] 2020-09-28 2020-09-28 (TEL) STLMLC STLMLC [id number] Co mmon 00:00:00 00:00:00 [facility] 2020-09-25 2020-09-25 (TEL) STLMLC STLMLC [id number] Co mmon 00:00:00 00:00:00 [facility] 2019-04-22 2019-04-22 [facility] [id number] Common 10:40:00 10:40:00 [facility] [address] [facility] 2019-01-14 2019-01-14 [facility] [id number] Common 16:34:00 16:34:[address] [facility] 2019-01-08 2019-01-08 [facility] [id number] Common 08:20:00 08:20:[address] [facility] 2018-11-12 2018-11-12 Out[facility] [id number] Common 09:30:00 09:30:[address] [facility] 2018-06-04 2018-06-04 Out[facility] [id number] Common 21:29:00 21:29:[address] [facility] 2018-06-04 2018-06-04 Out[facility] [id number] Common 11:15:00 11:15:[address] [facility] 2018-01-08 2018-01-08 Out[facility] [id number] Common 08:38:00 08:38:[address] [facility] 2017-12-13 2017-12-13 Out[facility] [id number] Common 15:32:00 15:32:[address] [facility] 2017-12-11 2017-12-11 Out[facility] [id number] Common 08:30:00 08:30:[address] [facility] Results Test Description Test Time Test Comments Results Result Comments Source QUANTLO 2022-06-07 16:06:31 Test Item Value Reference Range Interpretation Comme nts QuantaFlo left side (test See_Comment [ Automated message] The system which code = 20978-4L) generated t his result transmitted reference range : 1.40 - 0.90 NA. The reference range was not used to interpret this result as normal/abnormal. QuantaFlo right side (test See_Comment P resentation Factors: Hypertension, code = 10578-1V) Hyperlipide miaExercise Modality: At Restright hand was redone due to the light being too bright. Normal - 1.40 - 1.00Borderline - 0.99 - 0.90Mild - 0.89 - 0.60Moderate - 0.59 - 0.30Severe - 0.29 - 0.00 [Automated message] The system which generated this result transmitted reference range : 1.40 - 0.90 NA. The reference range was not used to interpret this result as normal/abnormal. Ruth Edwards - External
[2022-11-22 14:35] VITALS: BMI 31.0
--- NOTE | 2022-11-22 16:23 | OP ---
Date of Procedure: 11/22/2022 Surgeon: Sherry Yu MD Digital Business Analyst: Sheba Muller. Preoperative Diagnoses: Stage II anterior wall, posterior wall, and apical/uterine prolapse, stress urinary incontinence. Postoperative Diagnoses: Stage II anterior wall, posterior wall, and apical/uterine prolapse, stress urinary incontinence. Procedures Performed: 1.Bilateral sacrospinous ligament vaginal, bilateral sacrospinous ligament fixation, cervical colpop exy. 2.Anterior wall biologic graft augmented repair, posterior wall repair, enterocele repair through th e posterior wall, perineorrhaphy, and cystoscopy. Anesthesia: General endotracheal. Estimated Blood Loss: 100. Urine Output: 150. Fluids: 1700 LR. Specimens: No specimens. Complications: No complications. Drains: Salazar catheter with vaginal packing. Implants: Coloplast biologic graft 8 x 12 graft was fashioned to an 8 x 6 x 5 and then TVT-O was the second implant. Condition: The patient's condition good, transferred to the recovery room in stable condition. Indications: The patient is a 67-year-old lady, presenting with prolapse, symptomatic, tested and ma de the transvaginal ultrasound, cystoscopy, urodynamics, found to have KRISSY as well. She has mixed in continence; however, along with the surgery, stress urinary incontinence was planned to be fixed. Di scussed about all the options including physical therapy, pessary, and surgery. She preferred to pro ceed with surgery. She had medical clearance. Discussed about uterine preservation or removal, then laparoscopic vaginal repairs. All these were compared and contrasted. Use of a mesh and biologic g raft were compared and contrasted as well in terms of the success and recurrent rates and complicatio ns. She preferred to have a vaginal access surgery with biologic graft augmentation in the anterior wall, possible posterior wall, and a mid urethral sling with the mesh graft. Procedure In Detail: After informed consent was verified, she was taken back to the OR. Her carissae r was present at bedside and questions and answers were done to their satisfaction prior to taking he r back. 2 g of Ancef were given. SCDs were placed. General anesthesia was given. She was placed i n dorsal lithotomy position using Matthew stirrups. Vulva, vagina, and perineum were prepped and drape d in a sterile fashion using Betadine. Salazar was placed to drain the bladder and clamped and retract ed superiorly vaginally. The Swapnil retractor was used with 4 skin hooks initially and then 2 more s kin tags later to complete her case. Anterior wall, urethrovesical junction was identified. POP-Q w as done and is as dictated above. There appeared to be a site-specific defect on the anterior wall w ith distal part of the connective tissue attached to the urethra and the proximal part like ly from the paracervical ring. The midline anterior wall was held from the UVJ to the cervix with 2 Allis clamps, injected with dilu te vasopressin 20 cc. A 15-blade used to make an incision and this was extended after dissecting the bladder inward and the vesicovaginal space superiorly to the cervix and inferiorly to UVJ. The blad sandra was dissected adequately in the lateral aspect and the proximal part after exposing the cervix. Then, paravaginal space was entered. Pararectal space was entered. Ischial spine was palpated and s acrospinous ligament was cleared up by sweeping medial and posterior to the ischial spine, then sweep ing laterally and anterior to the ischial spine. The white line was also cleared up first on the lef t side and then on the right side. After adequate dissection was performed and all the structures we re well isolated, then 3-0 PDS sutures were placed at the proximal part of the anterior vaginal wall connective tissue that is the remnant of the septum. Then, I went down to the cervix and placed 3 Pr olene sutures 2-0 here, 1 in the center, 1 on either sides. Then, Prolene, Capio was used to take it by 2 cm medial to the ischial spine on the sacrospinous ligament on both sides and then the white li ne at least 2 cm lateral to the ischial spine and anterior on the white line. Two PDS sutures with C apio were placed. Once all the sutures were in place, the graft was taken, soaked according to natoa israel directions and trimmed to 8 x 6 x 5 cm with a small indentation for the cervix to accommodate it. Then, the graft was brought in to be attached to 3 PDS sutures followed by the Prolene sutures and t hen the Prolene sacrospinous suture with a mirela stitch on each side and the PDS on the white line w ith a simple bite on to the lateral wall of the graft 3 cm distal to distal and lateral to the sacros pinous bite. The PDS sutures were tied down to the distal anterior wall. Then, the Prolene sutures were tied down to the graft at the central superior and anterior wall to the paracervical ring. Then, the sacrospi nous sutures were tied down making sure that the knots were laid right on the ligament without a brid ge. Then, the PDS sutures to the white lines were tied. There was excellent retraction of the apex, suspension of the anterior wall. Here, the vaginal epithelium was exposed and closed with the help of 2-0 Vicryl in a continuous running horizontal mattress fashion all the way to the distal urethrove sical junction. Once the incision was completed, there was no need to trim any epithelium as this is very retractable and would give good length to the patient. The mid urethral area was picked up with Allis clamps, opened up in the middle after dilute vasopress in was injected 10 cc under the urethra. The flaps were raised on either sides staying under the con nective tissue and at a 45-degree angle to the horizontal and vertical planes hugging the inferior pu bic ramus into the obturator space. Once the tracts were opened up and widened, then the guide was p laced into the obturator space. Then, the spike with the plastic sheath was passed through hugging t he inferior pubic ramus and exiting 2 cm lateral to the groin line at slightly above the level of the urethral above the urethra, first on the right and then on the left side. The plastic sheaths were cut. The sling was tensioned with Metzenbaum scissors in the middle between the urethra and the mesh , and then the sheaths were pulled out. The mesh was trimmed, flushed with the skin. Dermabond was used to close the skin incisions. The vaginal epithelial incision was closed with the help of 3-0 Vi cryl in a continuous locked fashion after appropriately ensuring that the sling tensioning was small and that this was irrigated appropriately. Cystoscopy was performed with a 17-Chinese sheath, 30-degree lens, and normal saline. This was starte d before the sling was placed. The ureters were very active. There was very small amount of urine i n the bladder after hydration and after the sling procedure. Both ureteric orifices had spontaneous strong jets of urine without any evidence of foreign body or suture inside the bladder either from th e anterior repair or the sling. The bladder was drained, attached to Salazar tubing. Posterior wall was picked up at the level of the hymen with 2 Allis clamps and using the retractor catracho brito, this was retracted. A paulino-shaped incision was made with a small triangle on the perineum an d larger triangle the posterior distal third of the wall. Epithelium was excised exposing the underl sarah connective tissues. The connective tissue was isolated laterally proximally. A small posterior enterocele was present. This was also closed with the help of 2-0 PDS that I was using to close the fascial defect. Once this was closed in a continuous running fashion, this was tied down and 2-0 Vi cryl was used to place 2 interrupted sutures on the perineum to bring the transverse perineum togethe r. The vaginal epithelium was closed like a Y as there was an extension flap from the superior aspec t down to the lower part near the perineum, closed with the help of 2-0 Vicryl in a continuous runnin g horizontal mattress fashion. The perineum was also closed with the same suture. Rectal exam was n egative. There was good suspension and length. At least 3 fingerbreadths could be inserted at the g enital hiatus. Instrument, needle, and sponge counts were done and were correct at the end of the ca se. The patient tolerated the procedure well. She was recovered from anesthesia and taken to PACU i n stable condition after vaginal packing was placed. Salazar left in place, voiding trial in the morni ng after removing the packing and the Salazar at 6 o'clock, and CBC in the morning. Debriefed procedure to the daughter and she has all specific instructions to follow up in the office. AARON/RITU Voice ID: [id number] Report ID: [id number]
[2022-11-22] MEDS ORDERED: ATORVASTATIN 10 MG TAB PO SCH (21:00)
[2022-11-22] MEDS ORDERED: DONEPEZIL HCL 5 MG TAB PO SCH (21:00)
[2022-11-23] MEDS: Ringers Lactate 1,000 ML IV SCH ×2 (03:11→11:00)
[2022-11-23] MEDS ORDERED: AMLODIPINE 10 MG TAB PO SCH (06:00)
[2022-11-23] MEDS ORDERED: LEVOTHYROXINE SOD 0.05 MG TABLET PO SCH (06:00)
[2022-11-23 07:09] LABS: Absolute Lymphocytes (CBC) 1.3 K/uL (0.7-4.9); Hematocrit 31.7 % (36.0-45.0); Lymphocytes % 12.9 % (15.3-44.8); MCV 92.6 fL (80-100); MPV 9.4 fL (7.6-11.3); RBC Red Blood Cell Count 3.42 M/uL (3.86-4.86)
[2022-11-23] MEDS ORDERED: HOME MED 1 EA UNK (Pravastatin Sodium [Pravastatin Sodium] 10 MG Tablet) PO SCH (09:00)
[2022-11-23] MEDS ORDERED: PANTOPRAZOLE 40MG TABLET PO SCH (09:00)
[2022-11-23] MEDS ORDERED: hydroCHLOROthiazide 12.5 MG CAP PO SCH (09:00)
[2022-11-23] MEDS ORDERED: lisinopriL 20 MG TAB PO SCH (09:00)
[2022-11-23] MEDS ORDERED: HOME MED 1 EA UNK (Donepezil Hcl [Donepezil Hcl] 10 MG Tablet) PO SCH (09:00)
[2022-11-23] MEDS ORDERED: MEMANTINE HCL 10 MG TABLET PO SCH (09:00)
[2022-11-23] MEDS ORDERED: HOME MED 1 EA UNK (Omeprazole [Prilosec] 40 MG Capsule.Dr) PO SCH (09:00)
[2022-11-23] MEDS ORDERED: HOME MED 1 EA UNK (Lisinopril/Hydrochlorothiazide [Lisinopril-Hctz 20-12.5 Mg Tab] Tablet) PO SCH (09:00)
[2022-11-23 11:07] VITALS: O2SAT 100
[2022-11-23 13:18] VITALS: BP 108/56; TEMP 98
== END 2022-11-23 12:45 | disposition home or self-care (01) ==
LOC: OR 06:34 → 2ND 10:58
PROVIDERS: ADMIT Obstetrics & Gynecology; ATTEND Obstetrics & Gynecology
PROC: 0JUC0JZ Supplement of Pelvic Region Subcutaneous Tissue and Fascia with Synthetic Substitute, Open Approach (ICD-10-PCS; 2022-11-22)
PROC: 0JUC0JZ Supplement of Pelvic Region Subcutaneous Tissue and Fascia with Synthetic Substitute, Open Approach (ICD-10-PCS; 2022-11-22)
PROC: 0TSD0ZZ Reposition Urethra, Open Approach (ICD-10-PCS; 2022-11-22)
PROC: 0UUF0JZ Supplement Cul-de-sac with Synthetic Substitute, Open Approach (ICD-10-PCS; 2022-11-22)
PROC: 0USG7ZZ Reposition Vagina, Via Natural or Artificial Opening (ICD-10-PCS; principal; 2022-11-22 07:30)
DX: N81.2 Incomplete uterovaginal prolapse (principal); N39.3 Stress incontinence (female) (male); I10 Essential (primary) hypertension; E03.9 Hypothyroidism, unspecified; E78.00 Pure hypercholesterolemia, unspecified; Z20.822 Contact with and (suspected) exposure to COVID-19
CPT/HCPCS: 57282; 57288; 57265; 57267 ×2; 85025 ×2; 81001; 80048; 36415 ×2; 86900; 86850; 85610; 86901; 85730; 94010 ×2; 87811; J2550; J2704; J2001; J2250; J3010; J1100; J2270; J2405 ×2; J7120 ×5; J0690; G0378

== ENCOUNTER → 2025-04-30 | Day surgery (SDC) | payer OTHER ==
--- NOTE | 2025-04-30 14:05 | RAD REPORT ---
Exam: US Breast Core BX w/US Guidance CLINICAL HISTORY: N63.20 TECHNIQUE: The risks, benefits and alternatives to procedure were explained to the patient and informed consent was obtained. Prior ultrasound was reviewed. Timeout procedure was performed. Skin was prepped and draped in the usual sterile fashion. Skin and deeper tissues were anesthetized w ith lidocaine. Under sonographic guidance three 14-gauge vacuum-assisted core biopsies of the breast hypoechoic smal l mass present at 1:00 position were obtained. The specimens were sent to pathology for analysis. Subsequently a localizing clip was placed into the mass. Pressure was applied to the biopsy site. Patient experienced no immediate complication. Patient was transferred to the mammography unit was procedure mammograms, reported separately. IMPRESSION: Technically successful ultrasound-guided core biopsy of the left breast.
--- NOTE | 2025-04-30 15:03 | RAD REPORT ---
EXAM DESCRIPTION: S/P CLIP PLACEMENT UNI COMPARISON: Procedural images of ultrasound-guided core biopsy of the same day. TECHNIQUE: Full field CC and MLO views of the left breast were obtained utilizing digital breast 3D t omosynthesis technique. Computer-aided detection was utilized. FINDINGS: Postbiopsy changes are present, with postbiopsy clip in satisfactory location just anterior to the target lesion. Small branching or superficial hematoma. IMPRESSION: Postprocedural mammogram for clip localization as above. Density: B: There are scattered areas of fibroglandular density. *A negative x-ray report should not delay biopsy if a dominant or clinically suspicious mass is prese nt. 4.8% of cancers are not identified by x-ray. *A negative report may reinforce clinical impression. *Adenosis and dense breasts may obscure an underlying neoplasm. *False positive reports average 6-10%.
== END ==
LOC: DS 09:05
PROVIDERS: ATTEND Family Medicine
DX: N60.82 Other benign mammary dysplasias of left breast (principal); N63.20 Unspecified lump in the left breast, unspecified quadrant; R92.8 Other abnormal and inconclusive findings on diagnostic imaging of breast
CPT/HCPCS: 19083; 77065; 88305